=== PATIENT | male | born 1940 | race Caucasian/White ===

== ENCOUNTER 2017-07-25 10:59 | Outpatient (CLI) | payer MEDICARE ==
--- NOTE | 2017-07-25 13:07 | RAD ---
PA AND LATERAL CHEST: Indication: History of dyspnea. FINDINGS: There are stable post-surgical changes involving the chest. Heart size remains mildly prominent. Lung s are clear. No pleural effusion is evident. IMPRESSION: Stable cardiomegaly. POS: [facility]
== END 2017-07-25 11:00 | disposition home or self-care (01) ==
LOC: RAD 10:59
PROVIDERS: ATTEND Internal Medicine Critical Care Medicine
DX: R06.00 Dyspnea, unspecified (principal); I51.7 Cardiomegaly
CPT/HCPCS: 71046

== ENCOUNTER 2018-04-16 11:52 | Inpatient (IN) | payer MEDICARE ==
[2018-04-16 13:01] LABS: Hemoglobin 14.4 g/dL (14.0-18.0); Mean Corpuscular HGB CONC 33.3 g/dL (32.0-36.0); Mean Corpuscular Hemoglobin 31.6 pg (27.0-31.0); RBC Distribution Width 12.3 % (11.5-14.5); Red Blood Cell (RBC) Count 4.55 mill/uL (4.70-6.10); White Blood Cell (WBC) Count 6.1 thou/uL (4.8-10.8)
--- NOTE | 2018-04-16 13:07 | RAD ---
CHEST TWO VIEWS: History: Cough. Comparison: 10-01-15, 07-25-17 FINDINGS: There are sternotomy wires. There is atherosclerosis of the aorta. Heart is enlarged. The pulmonary v essels and hilum are normal. Costophrenic angles are clear. Hyperinflation with chronic changes. Supe rimposed interstitial infiltrates cannot be excluded. No consolidation or mass. No pneumothorax or os seous abnormalities. IMPRESSION: 1. Chronic changes. Superimposed infiltrates in the lung parenchyma cannot be excluded. 2. Atherosclerosis. POS: C
[2018-04-16 13:15] LABS: Anion Gap 14 mmol/L (10-20); BUN (Urea Nitrogen) 10 mg/dL (8.4-25.7); Calc. Creatinine Clearance 0 mL/min (70-130); Calcium 8.3 mg/dL (7.8-10.44); Carbon Dioxide 21 mmol/L (23-31); Chloride 102 mmol/L (98-107); Estimated GFR-MDRD Greater than 90; Glucose 122 mg/dL (83-110); Sodium 133 mmol/L (136-145)
[2018-04-16 13:23] LABS: Mean Platelet Volume 9.2 fL (7.4-10.4); Platelet Count 95 thou/uL (130-400)
[2018-04-16 13:24] LABS: Band 8 % (5-11); Eosinophils 1 % (0-10); Lymphocytes 6 % (21-51); MDiff Complete? YES; Monocytes 5 % (0-10); Neutrophil 80 % (42-75); PLT Morphology Comment Appears Decreased
[2018-04-16 13:43] LABS: ALT (SGPT) 16 U/L (8-55); AST (SGOT) 32 U/L (5-34); Albumin 3.8 g/dL (3.4-4.8); Alkaline Phosphatase 77 U/L (40-150); Bilirubin, Total 1.2 mg/dL (0.2-1.2); CK (CPK) 181 U/L (30-200); Globulin 2.1 g/dL (2.4-3.5); Protein, Total 5.9 g/dL (5.8-8.1)
[2018-04-16] MEDS ORDERED: Azithromycin 500 MG VIAL ONE ×2 (14:02→14:24)
[2018-04-16] MEDS ORDERED: cefTRIAXone\\ROCEPHIN 2 GM VIAL ONE ×2 (14:02→14:24)
[2018-04-16] MEDS ORDERED: Iopamidol 370 76% 100 ML VIAL ONE (16:44)
[2018-04-16] MEDS ORDERED: Ondansetron PF 4 MG/2 ML Vial IVP PRN (17:32)
[2018-04-16] MEDS ORDERED: Ondansetron ODT 4 MG TAB SL PRN (17:32)
[2018-04-16 18:11] VITALS: BMI 29.3
[2018-04-16] MEDS ORDERED: Furosemide 40 MG/4 ML VIAL SLOW IVP SCH (19:30)
--- NOTE | 2018-04-16 19:46 | CT ---
CT OF THE CHEST WITH CONTRAST: 04/16/18 COMPARISON: None. HISTORY: Pneumonia. TECHNIQUE: Multiple contiguous axial images were obtained in a CT of the chest with contrast. Coronal reformats were performed. FINDINGS: The heart is moderately enlarged. The patient is status post sternotomy. Calcifications are seen in t he coronary arteries. No hilar or mediastinal lymphadenopathy are appreciated. There are multifocal infiltrates in the lungs. This is seen in the bilateral upper lobes and to a les ser extent in the left lower lobe. No pleural effusion or pneumothorax are seen. Degenerative changes are seen in the spine. Hyperdensity in the gallbladder may represent gallstones. There is a thickene d gallbladder wall. The other visualized subdiaphragmatic structures are unremarkable. The chest wall soft tissues are unremarkable. IMPRESSION: 1. Multifocal infiltrates. 2. Cholelithiasis with possible acute cholecystitis. POS: [facility]
[2018-04-16] MEDS: Acetaminophen 325 MG TAB PO PRN (20:12)
[2018-04-16] MEDS ORDERED: PYRIDOXINE HCL PO SCH (21:00)
[2018-04-16] MEDS ORDERED: MELATONIN PO SCH (21:00)
[2018-04-16] MEDS: Potassium Chloride 20 MEQ TAB PO SCH (21:24)
[2018-04-16] MEDS: Melatonin 3 MG TAB PO SCH (21:25)
[2018-04-16] MEDS: Gabapentin 300 MG CAP PO SCH (21:25)
[2018-04-16] MEDS: Famotidine 20 MG TAB PO SCH (21:27)
[2018-04-16] MEDS: Carvedilol 25 MG TAB PO SCH (21:27)
[2018-04-16] MEDS: Guaifenesin DM 100-10/5 ML UDCUP PO PRN (21:40)
[2018-04-16] MEDS: Cepastat Lozenges 1 LOZ PO PRN (23:42)
--- NOTE | 2018-04-17 02:57 | HP ---
PRIMARY CARE PHYSICIAN: CHIEF COMPLAINT: Cough and shortness of breath. HISTORY OF PRESENT ILLNESS: Mr. Oconnor is a pleasant 77-year-old male, who presents with a past medical history of coronary artery disease; atrial fibrillation, status post ablation; hyperlipidemia; and hypertension, who had presented to [facility] with complaint of cough and productive yellow sputum along with congestions for 1 week. He also reports some slight shortness of breath. He had denied any chest pain. He had stated that he has noticed fever on and off over the last several days of up to 100.2. He states he was seen by his primary care physician, who had prescribed him promethazine cough syrup. The patient states over the last couple days, he had felt foggy and appeared confused per . He had taken his last dose of the promethazine cough syrup late last night. He states he had 1 episode of vomiting after he had taken that last dose of medication. He denies any further nausea or vomiting since. He states he also has noticed some generalized weakness. He had denied any headache, dizziness, blurred vision. He, however, does report fever, chills, generalized weakness, cough, mild shortness of breath. Nausea and vomiting last night, however, none since. He had denied any abdominal pain, constipation, or diarrhea. In the emergency department, he underwent a chest x-ray, which revealed chronic changes, superimposed infiltrates in the lungs, cannot be excluded. He was started on IV antibiotics including azithromycin and ceftriaxone. The patient's allergy list did indicate erythromycin; however, the patient had tolerated azithromycin well via IV. He has no symptoms of allergy-like symptoms. He was transferred to the floor for further monitoring and management. REVIEW OF SYSTEMS: Positive for cough, shortness of breath, generalized weakness, fever, and chills; however, all other review of systems reviewed and is negative unless noted in the HPI. PAST MEDICAL HISTORY: CAD, status post 3 stents placed; atrial fibrillation, status post ablation; hyperlipidemia; hypertension. PAST SURGICAL HISTORY: Coronary artery bypass graft x2 vessels, bilateral knee surgery, and right shoulder surgery. PSYCHIATRIC HISTORY: Denies any psychiatric history at this time. SOCIAL HISTORY: The patient reports drinking socially about 1-2 drinks a month. He denies tobacco use or any illicit drug use. KNOWN ALLERGIES: 1. Amiodarone. 2. Chloramphenicol. 3. Ciprofloxacin. 4. Doxycycline. 5. Erythromycin, however, tolerated azithromycin. 6. Lovastatin. 7. Phenergan. 8. Sulfa drugs. CURRENT HOME MEDICATIONS: 1. Furosemide 20 mg p.o. daily. 2. Nystatin 100,000 units p.o. b.i.d. p.r.n. 3. Apixaban 5 mg p.o. b.i.d. 4. Gabapentin 300 mg p.o. b.i.d. 5. Fexofenadine 180 mg p.o. daily p.r.n. 6. Pitavastatin 2 mg p.o. daily. 7. Potassium chloride 20 mEq p.o. t.i.d. 8. Selenium 50 mcg p.o. daily. 9. Hydrocortisone 2.5% ointment one application topical b.i.d. p.r.n. 10. Carvedilol 12.5 mg p.o. b.i.d. 11. Dutasteride 0.5 mg p.o. daily. 12. Valsartan 160 mg p.o. daily. 13. Hydroxyzine 25 mg p.o. q.a.m. 14. Fish oil 4 g p.o. at bedtime. 15. CoQ10 of 100 mg p.o. p.r.n. 16. Lysine 500 mg p.o. daily. 17. Melatonin/Pyridoxine 3 mg/10 mg 1 tab p.o. at bedtime. LABORATORY DATA: WBC 6.1, RBC 4.55, hemoglobin 14.4, platelets 95, neutrophil percent 80. Sodium 133, potassium 4.0, BUN 10, creatinine 0.79. Estimated GFR greater than 90. Glucose 122. Lactic acid 1.9. AST 32, ALT 16, alkaline phosphatase 77. Creatine kinase 181. Troponin 0.026. BNP 1610.6. DIAGNOSTIC IMAGING: Chest x-ray showed chronic changes, superimposed infiltrates in the lung. ASSESSMENT AND PLAN: 1. Pneumonia: We will check sputum culture results and blood culture results. Continue on IV antibiotics including ceftriaxone and azithromycin. Erythromycin is noted to be an allergy; however, he had tolerated IV azithromycin well. We will monitor patient closely. The patient had a CT in the past that showed pulmonary fibrosis. We will check CT with and without contrast for further evaluation. 2. Shortness of breath, likely secondary to above; however, the patient's BNP elevated. He had denied any cardiac workup recently; therefore, we will check echocardiogram for cardiac status. The patient is on furosemide at home. We will give a single dose of IV 40 mg of Lasix and then continue on his home furosemide dose tomorrow. 3. Hypertension: Continue on patient's current home medications. 4. History of atrial fibrillation: The patient remains in sinus rhythm on the monitor. We will continue on the patient's home regimen and monitor closely. 5. Hyperlipidemia: Continue on patient's home statin therapy. 6. Deep venous thrombosis prophylaxis: Continue on patient's home Eliquis. 7. Gastrointestinal prophylaxis with Pepcid twice daily and Zofran as needed for nausea. 8. Code status: Full code. DISPOSITION: Pending clinical findings and patient's progress. Job ID: [id number]
[2018-04-17] MEDS: Guaifenesin DM 100-10/5 ML UDCUP PO PRN ×3 (04:13→21:43)
[2018-04-17 05:51] LABS: Band 9 % (5-11); Hemoglobin 12.5 g/dL (14.0-18.0); Lymphocytes 17 % (21-51); MDiff Complete? YES; Mean Corpuscular HGB CONC 29.8 g/dL (32.0-36.0); Mean Corpuscular Hemoglobin 28.1 pg (27.0-31.0); Mean Corpuscular Volume 94.3 fL (78.0-98.0); Mean Platelet Volume 9.6 fL (7.4-10.4); Monocytes 15 % (0-10); Neutrophil 59 % (42-75); Ovalocytes SLIGHT = 2-5 cells (100X) (0-1/hpf); PLT Morphology Comment Appears Decreased; Platelet Count 100 thou/uL (130-400); RBC Distribution Width 12.2 % (11.5-14.5); Red Blood Cell (RBC) Count 4.45 mill/uL (4.70-6.10); White Blood Cell (WBC) Count 5.9 thou/uL (4.8-10.8)
[2018-04-17 06:06] LABS: Anion Gap 14 mmol/L (10-20); BUN (Urea Nitrogen) 12 mg/dL (8.4-25.7); Calc. Creatinine Clearance 86 mL/min (70-130); Calcium 8.3 mg/dL (7.8-10.44); Carbon Dioxide 25 mmol/L (23-31); Chloride 100 mmol/L (98-107); Estimated GFR-MDRD 89; Glucose 94 mg/dL (83-110); Potassium 4.3 mmol/L (3.5-5.1); Sodium 135 mmol/L (136-145)
[2018-04-17] MEDS: Carvedilol 25 MG TAB PO SCH ×2 (08:20→21:42)
[2018-04-17] MEDS: Furosemide 20 MG TAB PO SCH (08:21)
[2018-04-17] MEDS: Dutasteride 0.5 MG CAP PO SCH (08:21)
[2018-04-17] MEDS: Gabapentin 300 MG CAP PO SCH ×2 (08:21→21:43)
[2018-04-17] MEDS: Potassium Chloride 20 MEQ TAB PO SCH ×3 (08:22→21:43)
[2018-04-17] MEDS: Cepastat Lozenges 1 LOZ PO PRN (08:23)
[2018-04-17] MEDS: hydrOXYzine 25 MG TAB PO SCH (08:29)
[2018-04-17] MEDS: Famotidine 20 MG TAB PO SCH ×2 (08:30→21:43)
[2018-04-17] MEDS ORDERED: PITAVASTATIN CALCIUM 2 MG PO SCH (09:00)
[2018-04-17] MEDS ORDERED: Valsartan 80 MG TAB PO SCH (09:00)
[2018-04-17] MEDS ORDERED: SELENIUM 50 MCG PO SCH (09:00)
[2018-04-17] MEDS: Azithromycin 500 MG in Sodium Chloride 0.9% 250 ML 250 ML IVPB SCH (13:35)
[2018-04-17] MEDS: cefTRIAXone\\ROCEPHIN 1 GM in Sodium Chloride 0.9% 100 ML IVPB SCH (14:46)
[2018-04-17] MEDS: Ondansetron ODT 4 MG TAB SL PRN ×2 (14:47→21:50)
--- NOTE | 2018-04-17 16:17 | CON ---
DATE OF CONSULTATION: 04/17/2018 REASON FOR CONSULTATION: Cardiomyopathy. HISTORY OF PRESENT ILLNESS: Mr. Oconnor is a pleasant 77-year-old white gentleman, who comes to the hospital for cough and fever. He was admitted and diagnosed with multifocal pneumonia, started on IV antibiotics. During his initial evaluation, a BNP was measured and it was very high, so an echocardiogram was ordered. He also was seen to be a little swollen around the legs. It was thought that his shortness of breath was related to his pneumonia. He had an echo earlier this morning and was found to have a new onset of cardiomyopathy, his EF is 30% to 35%, so Cardiology has been consulted for this. Mr. Oconnor tells me that he expected his heart to be a little bit weak on that echo as he had noticed that he had been slowing down in the last 2 to 3 months. He was unable to do the exercise that he is used to do. He has a very nice schedule. As far as his exercise is concerned, he does 45 reps of 13 different exercises and he has been having to cut back significantly because he has been much weaker and tired lately. Last time he had an evaluation of his EF here in the hospital was in 2016, and he had normal LV function. He follows with Dr. Fitch, and he had an echo about a year ago and he was told everything looked fine. He denies any chest pain, tightness, or pressure. PAST MEDICAL HISTORY: 1. Hypertension. 2. Hyperlipidemia. 3. BPH. 4. CAD, status post bypass surgery in [facility] in about 20 years ago. 5. Bronchitis in the past. 6. Paroxysmal atrial fibrillation. 7. GI bleeding, on full anticoagulation. PAST SURGICAL HISTORY: 1. Coronary artery bypass grafting x2. 2. Bilateral knee surgery. 3. Right shoulder surgery. SOCIAL HISTORY: Social alcohol use, about one or two drinks a month. No tobacco or drug use. OUTPATIENT MEDICATIONS: Include: 1. Lasix 20 mg a day. 2. Nystatin p.r.n. 3. Eliquis 5 mg b.i.d. 4. Gabapentin 300 mg p.o. b.i.d. 5. Fexofenadine 180 mg a day. 6. Pitavastatin 2 mg a day. 7. Potassium chloride 20 mEq t.i.d. 8. Selenium. 9. Hydrocortisone p.r.n. ointment. 10. Carvedilol 12.5 mg b.i.d. 11. Dutasteride 0.5 mg a day. 12. Valsartan 160 mg a day. 13. Hydroxyzine 25 mg q.a.m. 14. Fish oil 4 g p.o. at bedtime. 15. CoQ10. 16. Lysine. 17. Melatonin with pyridoxine. ALLERGIES: 1. AMIODARONE. 2. CHLORAMPHENICOL. 3. CIPROFLOXACIN. 4. DOXYCYCLINE. 5. ERYTHROMYCIN, BUT HAS TOLERATED THE AZITHROMYCIN. 6. LOVASTATIN. 7. PHENERGAN. 8. SULFA DRUGS. REVIEW OF SYSTEMS: A 12-point review of systems was done and was found to be negative unless stated in the history of present illness. PHYSICAL EXAMINATION: VITAL SIGNS: Temperature 99.7, pulse 64, respiratory rate 16, saturating 92% on room air, and blood pressure 154/72. GENERAL: Awake, alert, and oriented x3, in no distress. HEENT: Normocephalic, atraumatic. NECK: Supple. LUNGS: Coarse breath sounds bilaterally with expiratory wheezes. CARDIOVASCULAR: S1 and S2. No S3 or S4. There is a grade 2/6 systolic murmur in the right upper sternal border. ABDOMEN: Soft. Positive bowel sounds. EXTREMITIES: Trace edema. SKIN: Warm and dry. LABORATORY DATA: Laboratory work was reviewed. CBC; white count 6.1, hemoglobin of 14.4, hematocrit 43, platelet count of 95. Chemistries with a sodium of 133, up to 135. Potassium and chloride are normal. BUN and creatinine are normal. GFR is greater than 90. Lactic acid was normal at 1.9. Troponin 0.026, normal. BNP was 1610. Albumin of 3.8. Influenza A and B are both negative. Blood cultures were negative x2. Respiratory culture is a few gram-positive cocci and a few gram-negative rods and moderate gram-positive rods. Normal respiratory tomas. EKG was reviewed, right bundle-branch block, bradycardia but sinus. ASSESSMENT: 1. New-onset cardiomyopathy, ejection fraction of 30% to 35% on echo with grade 3 diastolic dysfunction. 2. Multilobar pneumonia. 3. Coronary artery disease, status post coronary artery bypass grafting x2, 20 years ago. 4. Paroxysmal atrial fibrillation. 5. History of gastrointestinal bleeding in the past. PLAN: 1. Reduced EF on echo may be ischemic and may be related to multilobar pneumonia. 2. He will need a heart catheterization in the near future. However, at this point, he is having to get over his pneumonia. He is coughing quite a bit, and that would not be ideal for heart catheterization from the groin as his bleeding risk is a lot higher with coughing. I would wait for this to get better before doing further risk stratification. 3. We would up titrate his medications currently. We will switch to Entresto before discharge. 4. We had a long conversation about LifeVest on discharge and he agrees. We will put an order for LifeVest as well. 5. He will need to be on telemetry given his LV dysfunction. Thank you for letting me to participate in the care of your patient. Dr. Cannon will follow up in the morning. Job ID: [id number] [facility]
[2018-04-17] MEDS: Sacubitril 24.5 MG/Valsartan 25.5 MG TABLET PO SCH (21:42)
[2018-04-17] MEDS: Melatonin 3 MG TAB PO SCH (21:42)
--- NOTE | 2018-04-17 22:02 | PDOC.PN ---
- Subjective Encounter Start Date: 04/17/18 Encounter Start Time: 12:00 Patient seen with at bedside earlier today, he reports feeling better today. He has noticed some loose stools and mild nausea that improved after zofran. He deneis fever or chills. Blood cultures negative. He reports improved shortness of breath, but persistent cough. Dr Armstrong saw patient for reduced EF and plans for life vest with heart cath in near future once pneumonia resolved. - Objective Resuscitation Status - Order Detail: 04/16/18 17:49 Resuscitation Status Routine Co-Sign Provider: Resuscitation Status: FULL: Full Resuscitation MAR Reviewed: Yes Vital Signs & Weight: Vital Signs (12 hours) Temp Pulse Resp BP BP Pulse Ox 04/17/18 20:00 99.2 F 73 18 162/80 H 92 L 04/17/18 19:07 60 12 04/17/18 16:28 98.9 F 67 18 150/78 H 93 L 04/17/18 16:21 97.8 F 65 18 142/77 H 93 L 04/17/18 11:20 99.7 F H 64 16 154/72 H 92 L 04/17/18 10:13 66 20 160/74 H Weight Weight 181 lb 14.4 oz I&O: 04/16/18 04/17/18 04/18/18 06:59 06:59 06:59 Intake Total 754 1410 Output Total 925 Balance 754 485 Result Diagrams: 04/17/18 04:09 04/17/18 04:09 Radiology Reviewed by me: Yes Phys Exam - Physical Examination Constitutional: NAD HEENT: PERRLA, moist MMs, oral pharynx no lesions Neck: no nodes, no JVD, supple Course breath sounds with expiratory wheezes. Cardiovascular: RRR, no rub 2/6 systolic murmur Gastrointestinal: soft, non-tender, positive bowel sounds Musculoskeletal: pulses present Trace edema noted Neurological: non-focal, normal sensation, moves all 4 limbs Lymphatic: no nodes Psychiatric: normal affect, A&O x 3 Skin: no rash, normal turgor, cap refill <2 seconds Dx/Plan (1) Pneumonia Code(s): J18.9 - PNEUMONIA, UNSPECIFIED ORGANISM Status: Acute (2) Systolic and diastolic CHF, acute Code(s): I50.41 - ACUTE COMBINED SYSTOLIC AND DIASTOLIC (CONGESTIVE) HRT FAIL Status: Acute (3) CAD (coronary artery disease) Code(s): I25.10 - ATHSCL HEART DISEASE OF [place] CORONARY ARTERY W/O ANG PCTRS Status: Chronic Qualifiers: Coronary Disease-Associated Artery/Lesion type: [place] artery [place] vs. transplanted heart: [place] heart Associated angina: without angina Qualified Code(s): I25.10 - Atherosclerotic heart disease of [place] coronary artery without angina pectoris (4) HTN (hypertension) Code(s): I10 - ESSENTIAL (PRIMARY) HYPERTENSION Status: Chronic - Plan cont current plan of care, plan discussed w/ family, continue antibiotics, respiratory therapy * Transfer to [facility] * Continue supportive therapy including duonebs * Continue antibiotic therapy, await sputum culture * Blood cultures negative * Check stool cultures for new onset diarrhea * Cardiology services following, appreciate recs * Dr Armstrong recommending lifevest with heart cath in near future * monitor vital and labs
[2018-04-18] MEDS: Acetaminophen 325 MG TAB PO PRN (05:23)
[2018-04-18] MEDS ORDERED: Loratadine 10 MG TAB PO PRN (07:26)
[2018-04-18] MEDS ORDERED: Sodium Chloride 0.65% Nasal 44 ML BOT EA NARE PRN (07:26)
[2018-04-18] MEDS ORDERED: Loperamide HCl 2 MG CAP PO PRN (07:26)
[2018-04-18] MEDS ORDERED: Acetaminophen 500 MG TAB PO PRN (07:26)
[2018-04-18] MEDS ORDERED: Bisacodyl 5 MG TAB PO PRN (07:26)
[2018-04-18] MEDS ORDERED: HYDROcodone/Acetaminophen 5/325 mg Tablet PO PRN (07:26)
[2018-04-18] MEDS ORDERED: Senokot S 8.6-50 MG TAB PO PRN (07:26)
[2018-04-18] MEDS ORDERED: Eucerin (Mineral Oil/Petrolatum,White) 30 gm Jar TOP PRN (07:26)
[2018-04-18] MEDS ORDERED: Zolpidem Tartrate 5 MG TAB PO PRN (07:26)
[2018-04-18] MEDS ORDERED: Artificial Tears 18 DROP/0.9 ML EA EYE PRN (07:26)
[2018-04-18] MEDS ORDERED: hydrALAZINE 20 MG/ML VIAL SLOW IVP PRN (07:26)
[2018-04-18] MEDS ORDERED: Ondansetron PF 4 MG/2 ML Vial IVP PRN (07:26)
[2018-04-18] MEDS: Carvedilol 25 MG TAB PO SCH ×2 (08:31→21:16)
[2018-04-18] MEDS: Apixaban 5 MG TAB PO SCH ×2 (08:31→21:15)
[2018-04-18] MEDS: Saccharomyces boulardii 250 MG CAP PO SCH (08:31)
[2018-04-18] MEDS: Gabapentin 300 MG CAP PO SCH ×2 (08:32→21:15)
[2018-04-18] MEDS: Famotidine 20 MG TAB PO SCH ×2 (08:32→21:15)
[2018-04-18] MEDS: Sacubitril 24.5 MG/Valsartan 25.5 MG TABLET PO SCH ×2 (08:32→21:16)
[2018-04-18] MEDS: hydrOXYzine 25 MG TAB PO SCH (08:32)
[2018-04-18] MEDS: Furosemide 20 MG TAB PO SCH (08:32)
[2018-04-18] MEDS: Dutasteride 0.5 MG CAP PO SCH (08:32)
[2018-04-18] MEDS: Potassium Chloride 20 MEQ TAB PO SCH ×3 (08:32→21:16)
[2018-04-18] MEDS: Lysine 500 MG TAB PO SCH (08:37)
--- NOTE | 2018-04-18 09:47 | ULT ---
RIGHT UPPER QUADRANT ULTRASOUND: History: Abnormal CT chest 04-16-18, possible cholecystitis. FINDINGS: The liver demonstrates homogeneous echotexture without focal mass or intrahepatic ductal dilatation. Multiple shadowing gallstones are seen with gallbladder wall thickening. The pancreas is not well vis ualized due to overlying bowel gas. The common duct measures 5 mm in thickness. The right kidney is u nremarkable. There is a trace amount of fluid adjacent to the gallbladder/liver in the left lateral d ecubitus position. IMPRESSION: Cholelithiasis with gallbladder wall thickening and trace amount of free fluid. The possibility of ac [place] cholecystitis cannot be excluded. Further evaluation with HIDA scan is recommended. POS: C
--- NOTE | 2018-04-18 10:16 | PDOC.PN ---
- Subjective Encounter Start Date: 04/18/18 Encounter Start Time: 09:40 -: old records requested/rev pt has cough, he has no abdominal pain, has fever, no dyspnea Patient seen and examined. No new complaints. No overnight events - Objective Resuscitation Status - Order Detail: 04/16/18 17:49 Resuscitation Status Routine Co-Sign Provider: Resuscitation Status: FULL: Full Resuscitation MAR Reviewed: Yes Vital Signs & Weight: Vital Signs (12 hours) Temp Pulse Resp BP Pulse Ox 04/18/18 10:11 65 18 92 L 04/18/18 08:30 90 L 04/18/18 07:50 99.0 F 61 18 133/64 90 L 04/18/18 06:50 68 16 94 L 04/18/18 04:00 101.6 F H 71 18 125/60 90 L 04/18/18 02:34 60 12 04/18/18 00:00 100.6 F H 68 20 133/79 91 L Weight Weight 181 lb 14.4 oz I&O: 04/17/18 04/18/18 04/19/18 06:59 06:59 06:59 Intake Total 754 1410 300 Output Total 925 Balance 754 485 300 Result Diagrams: 04/17/18 04:09 04/17/18 04:09 Radiology Reviewed by me: Yes (US cholelethiasis) EKG Reviewed by me: Yes (nsr) Phys Exam - Physical Examination Constitutional: NAD HEENT: PERRLA, moist MMs, sclera anicteric Neck: no JVD, supple Respiratory: no wheezing, no rhonchi scattered rales+ Cardiovascular: RRR, no significant murmur, no rub Gastrointestinal: soft, non-tender, no distention, positive bowel sounds Musculoskeletal: no edema, pulses present Neurological: non-focal, normal sensation, moves all 4 limbs Lymphatic: no nodes Psychiatric: normal affect, A&O x 3 Skin: no rash, normal turgor Dx/Plan (1) Multifocal pneumonia Code(s): J18.9 - PNEUMONIA, UNSPECIFIED ORGANISM Status: Acute Comment: suspecting streptococal (2) Sepsis due to pneumonia Code(s): J18.9 - PNEUMONIA, UNSPECIFIED ORGANISM; A41.9 - SEPSIS, UNSPECIFIED ORGANISM Status: Acute (3) Thrombocytopenia Code(s): D69.6 - THROMBOCYTOPENIA, UNSPECIFIED Status: Acute Comment: due to sepsis (4) BPH (benign prostatic hyperplasia) Code(s): N40.0 - BENIGN PROSTATIC HYPERPLASIA WITHOUT LOWER URINRY TRACT SYMP Status: Chronic (5) CAD (coronary artery disease) Code(s): I25.10 - ATHSCL HEART DISEASE OF [place] CORONARY ARTERY W/O ANG PCTRS Status: Chronic Qualifiers: Coronary Disease-Associated Artery/Lesion type: [place] artery [place] vs. transplanted heart: [place] heart Associated angina: without angina Qualified Code(s): I25.10 - Atherosclerotic heart disease of [place] coronary artery without angina pectoris (6) Cholelithiases Code(s): K80.20 - CALCULUS OF GALLBLADDER W/O CHOLECYSTITIS W/O OBSTRUCTION Status: Chronic (7) Chronic anticoagulation Code(s): Z79.01 - LOADER HELPER (CURRENT) USE OF ANTICOAGULANTS Status: Chronic (8) Chronic combined systolic (congestive) and diastolic (congestive) heart failure Code(s): I50.42 - CHRONIC COMBINED SYSTOLIC AND DIASTOLIC HRT FAIL Status: Chronic (9) Dyslipidemia Code(s): E78.5 - HYPERLIPIDEMIA, UNSPECIFIED Status: Chronic (10) HTN (hypertension) Code(s): I10 - ESSENTIAL (PRIMARY) HYPERTENSION Status: Chronic (11) Moderate aortic regurgitation Code(s): I35.1 - NONRHEUMATIC AORTIC (VALVE) INSUFFICIENCY Status: Chronic (12) Paroxysmal a-fib Code(s): I48.0 - PAROXYSMAL ATRIAL FIBRILLATION Status: Chronic - Plan cont current plan of care, continue antibiotics, respiratory therapy * medication reviewed as below * symptomatic treatment * continue rocephin and azithromycin * follow culture * will get HIDA scan to rule out acute cholecystitis * repeat labs tomorrow * overall stable and improving. Review of Systems - Review of Systems Constitutional: fever. negative: chills, sweats, weakness, malaise, other ENT: negative: Ear Pain, Ear Discharge, Nose Pain, Nose Discharge, Nose Congestion, Mouth Pain, Mouth Swelling, Throat Pain, Throat Swelling, Other Respiratory: Cough. negative: Dry, Shortness of Breath, Hemoptysis, SOB with Excertion, Pleuritic Pain, Sputum, Wheezing Cardiovascular: negative: chest pain, palpitations, orthopnea, paroxysmal nocturnal dyspnea, edema, light headedness, other Gastrointestinal: negative: Nausea, Vomiting, Abdominal Pain, Diarrhea, Constipation, Melena, Hematochezia, Other Genitourinary: negative: Dysuria, Frequency, Incontinence, Hematuria, Retention , Other Musculoskeletal: negative: Neck Pain, Shoulder Pain, Arm Pain, Back Pain, Hand Pain, Leg Pain, Foot Pain, Other Skin: negative: Rash, Lesions, Zeus, Bruising, Other - Medications/Allergies Allergies/Adverse Reactions: Allergies Allergy/AdvReac Type Severity Reaction Status Date / Time Hppegth-Lmx-Fge Reductase Allergy Intermediate Muscle Verified 04/16/18 18:10 Inhibitor spasms amiodarone Allergy Verified 07/14/14 15:48 chloramphenicol Allergy Verified 07/14/14 15:48 [From Chloromycetin] ciprofloxacin HCl Allergy Verified 07/14/14 15:48 [From Cipro] doxycycline Allergy Verified 07/14/14 15:48 erythromycin base Allergy Verified 07/14/14 15:48 Sulfa (Sulfonamide Allergy Verified 07/14/14 15:48 Antibiotics) Medications: Current Medications Acetaminophen (Tylenol) 650 mg PO Q4H PRN PRN Reason: Headache/Fever/Mild Pain (1-3) Last Admin: 04/18/18 05:23 Dose: 650 mg Acetaminophen (Tylenol) 500 mg PO Q6H PRN PRN Reason: Mild Pain (1-3) Hydrocodone Bitart/Acetaminophen ([place] 5/325) 1 tab PO Q4H PRN PRN Reason: Moderate Pain (4-6) Albuterol/Ipratropium (Duoneb) 3 ml NEB [id number] [facility] Last Admin: 04/18/18 10:11 Dose: 3 ml Apixaban (Eliquis) 5 mg PO BID [facility] Last Admin: 04/18/18 08:31 Dose: 5 mg Artificial Tears (Tears Naturale) 2 drop EA EYE PRN PRN PRN Reason: Dry Eyes Bisacodyl (Dulcolax) 10 mg PO DAILYPRN PRN PRN Reason: Constipation Carvedilol (Coreg) 12.5 mg PO BID [facility] Last Admin: 04/18/18 08:31 Dose: 12.5 mg Dutasteride (Avodart) 0.5 mg PO DAILY [facility] Last Admin: 04/18/18 08:32 Dose: 0.5 mg Famotidine (Pepcid) 20 mg PO BID [facility] Last Admin: 04/18/18 08:32 Dose: 20 mg Fish Oil (Fish Oil) 4,000 mg PO HS [facility] Furosemide (Lasix) 20 mg PO DAILY [facility] Last Admin: 04/18/18 08:32 Dose: 20 mg Gabapentin (Neurontin) 300 mg PO BID [facility] Last Admin: 04/18/18 08:32 Dose: 300 mg Guaifenesin (Robitussin Sf) 200 mg PO Q4H PRN PRN Reason: Cough Guaifenesin/Dextromethorphan (Robitussin Dm) 10 ml PO Q6H PRN PRN Reason: Cough Last Admin: 04/17/18 21:43 Dose: 10 ml Hydralazine HCl (Apresoline) 10 mg SLOW IVP Q4H PRN PRN Reason: SBP > 180 and HR < 70 Hydroxyzine HCl (Atarax) 25 mg PO QAM [facility] Last Admin: 04/18/18 08:32 Dose: 25 mg Azithromycin 500 mg/ Sodium (Chloride) 250 mls @ 250 mls/hr IVPB 1400 [facility] Last Admin: 04/17/18 13:35 Dose: 250 mls Ceftriaxone Sodium 1 gm/ (Sodium Chloride) 100 mls @ 200 mls/hr IVPB 1500 [facility] Last Admin: 04/17/18 14:46 Dose: 100 mls Loperamide HCl (Imodium) 2 mg PO PRN PRN PRN Reason: Diarrhea/Loose Stools Loratadine (Claritin) 10 mg PO DAILYPRN PRN PRN Reason: Sinus Symptoms Lysine (L-Lysine) 500 mg PO DAILY [facility] Last Admin: 04/18/18 08:37 Dose: 500 mg Melatonin (Melatonin) 3 mg PO [facility] Last Admin: 04/17/18 21:42 Dose: 3 mg Mineral Oil/White Petrolatum (Eucerin Cream) 0 gm TOP BIDPRN PRN PRN Reason: Dry Skin Ondansetron HCl (Zofran Odt) 4 mg SL Q6H PRN PRN Reason: Nausea/Vomiting Last Admin: 04/17/18 21:50 Dose: 4 mg Ondansetron HCl (Zofran) 4 mg IVP Q6H PRN PRN Reason: Nausea/Vomiting Potassium Chloride (K-Dur) 20 meq PO TID [facility] Last Admin: 04/18/18 08:32 Dose: 20 meq Saccharomyces Boulardii (Florastor) 250 mg PO DAILY [facility] Last Admin: 04/18/18 08:31 Dose: 250 mg Sacubitril/Valsartan (Entresto 24.5 Mg-25.5 Mg Tablet) 1 tab PO BID [facility] Last Admin: 04/18/18 08:32 Dose: 1 tab Senna/Docusate Sodium (Senokot S) 2 tab PO BID PRN PRN Reason: Constipation Sodium Chloride (Flush - Normal Saline) 10 ml IVF PRN PRN PRN Reason: Saline Flush Last Admin: 04/17/18 21:43 Dose: 10 ml Sodium Chloride ([place] Nasal [place] 0.65%) 0 ml EA NARE QIDPRN PRN PRN Reason: Nasal Congestion Throat Lozenges (Cepastat Lozenges) 1 lois PO PRN PRN PRN Reason: SORE THROAT Last Admin: 04/17/18 08:23 Dose: 1 lois Zolpidem Tartrate (Ambien) 5 mg PO HSPRN PRN PRN Reason: Insomnia
[2018-04-18] MEDS ORDERED: Morphine 2 MG/ML SYRINGE SLOW IVP SCH (16:15)
[2018-04-18] MEDS: Azithromycin 500 MG in Sodium Chloride 0.9% 250 ML 250 ML IVPB SCH (17:26)
--- NOTE | 2018-04-18 18:02 | PDOC.CTH ---
Cardiology Progress Note - Subjective No current complaints. SEn ambulating today. On BB, entresto, Abx. Low grade fever today - Objective Vital Signs Temp Pulse Resp BP Pulse Ox 04/18/18 15:37 98.7 F 60 16 148/68 H 91 L 04/18/18 11:22 98.9 F 53 L 18 118/59 L 90 L 04/18/18 10:11 65 18 92 L 04/18/18 08:30 90 L 04/18/18 07:50 99.0 F 61 18 133/64 90 L 04/18/18 06:50 68 16 94 L Weight 181 lb 14.4 oz 04/17/18 04/18/18 04/19/18 06:59 06:59 06:59 Intake Total 754 1410 300 Output Total 925 Balance 754 485 300 - Physical Examination General/Neuro: alert & oriented x3, NAD Neck: carotid US brisk, no JVD present Lungs: CTA, unlabored respirations Heart: PMI normal, RRR Abdomen: NT/ND, soft Extremities: + femoral B - Labs Result Diagrams: 04/17/18 04:09 04/17/18 04:09 Troponin/CKMB Troponin I 0.026 ng/mL (< 0.028) 04/16/18 12:44 - Assessment/Plan 1. Cardiomyopathy of unknown etiology 2. Pneumonia 3. CAD On CHF meds Recommend lifevest Order placed On Abx.
[2018-04-18] MEDS: cefTRIAXone\\ROCEPHIN 1 GM in Sodium Chloride 0.9% 100 ML IVPB SCH (18:37)
--- NOTE | 2018-04-18 19:04 | NM ---
HEPATOBILIARY STUDY: 04/18/18 HISTORY: Gallbladder wall thickening noted on ultrasound exam and CT examination. Evaluate for cholecystitis. RADIOPHARMACEUTICAL: 5.5 millicuries technetium 99m Mebrofenin, IV. MEDICATIONS: 2 mg Morphine, IV five minutes prior to imaging. FINDINGS: There is normal uptake in excretion of radiotracer by the liver. Bowel activity is faintly visualized by 6 minutes with increasing activity in gallbladder imaging up to 60 minutes. The gallbladder is no t visualized after 60 minutes of imaging. As the result, 2 mg of Morphine was administered intravenou sly and imaging was performed. There is activity seen within the gallbladder on the initial images obtained after the Morphine admin istration. IMPRESSION: 1. No evidence of a cystic or common duct obstruction. Gallbladder activity is visualized after Morphine administration. 2. Above findings reviewed with Dr. Amador and Dr. De Guzman who are in agreement with the above f indings and assessment. POS: [facility]
[2018-04-18] MEDS: Melatonin 3 MG TAB PO SCH (21:16)
[2018-04-18] MEDS: Fish Oil 1,000 MG CAP PO SCH (21:16)
[2018-04-19 05:39] LABS: #Lymphocytes 1.4 thou/uL (1.20-3.40); #Monocytes 1.5 thou/uL (0.11-0.59); %Basophils 0.1 % (0.0-1.0); %Eosinophils 0.3 % (0.0-10.0); %Lymphocytes 12.8 % (21.0-51.0); %Monocytes 13.4 % (0.0-10.0); %Neutrophils 73.3 % (42.0-75.0); Hemoglobin 13.6 g/dL (14.0-18.0); Mean Corpuscular HGB CONC 33.4 g/dL (32.0-36.0); Mean Corpuscular Hemoglobin 31.3 pg (27.0-31.0); Mean Corpuscular Volume 93.7 fL (78.0-98.0); Mean Platelet Volume 9.3 fL (7.4-10.4); Platelet Count 113 thou/uL (130-400); RBC Distribution Width 12.1 % (11.5-14.5); Red Blood Cell (RBC) Count 4.36 mill/uL (4.70-6.10)
[2018-04-19 06:45] LABS: ALT (SGPT) 22 U/L (8-55); AST (SGOT) 43 U/L (5-34); Albumin 3.2 g/dL (3.4-4.8); Alkaline Phosphatase 63 U/L (40-150); Anion Gap 12 mmol/L (10-20); BUN (Urea Nitrogen) 17 mg/dL (8.4-25.7); Bilirubin, Total 0.8 mg/dL (0.2-1.2); Calc. Creatinine Clearance 86 mL/min (70-130); Carbon Dioxide 22 mmol/L (23-31); Chloride 100 mmol/L (98-107); Estimated GFR-MDRD 89; Globulin 2.2 g/dL (2.4-3.5); Glucose 93 mg/dL (83-110); Potassium 4.8 mmol/L (3.5-5.1); Protein, Total 5.4 g/dL (5.8-8.1); Sodium 129 mmol/L (136-145)
[2018-04-19] MEDS: Furosemide 20 MG TAB PO SCH (08:45)
[2018-04-19] MEDS: Apixaban 5 MG TAB PO SCH ×2 (08:45→20:40)
[2018-04-19] MEDS: Dutasteride 0.5 MG CAP PO SCH (08:45)
[2018-04-19] MEDS: Carvedilol 25 MG TAB PO SCH ×2 (08:45→20:40)
[2018-04-19] MEDS: Gabapentin 300 MG CAP PO SCH ×2 (08:45→20:40)
[2018-04-19] MEDS: Famotidine 20 MG TAB PO SCH ×2 (08:45→20:41)
[2018-04-19] MEDS: Saccharomyces boulardii 250 MG CAP PO SCH (08:46)
[2018-04-19] MEDS: Lysine 500 MG TAB PO SCH (08:46)
[2018-04-19] MEDS: Sacubitril 24.5 MG/Valsartan 25.5 MG TABLET PO SCH ×2 (08:46→20:40)
[2018-04-19] MEDS: Potassium Chloride 20 MEQ TAB PO SCH ×3 (08:46→20:40)
[2018-04-19] MEDS: hydrOXYzine 25 MG TAB PO SCH (08:46)
[2018-04-19] MEDS ORDERED: Furosemide 20 MG/2 ML VIAL SLOW IVP SCH ×2 (11:00→14:00)
[2018-04-19] MEDS: Diabetic Tussin 200 MG/10 ML UDCUP PO PRN ×3 (11:06→20:41)
[2018-04-19] MEDS: Cepastat Lozenges 1 LOZ PO PRN (11:07)
[2018-04-19] MEDS: Azithromycin 500 MG in Sodium Chloride 0.9% 250 ML 250 ML IVPB SCH (12:22)
--- NOTE | 2018-04-19 12:37 | PDOC.PN ---
- Subjective Encounter Start Date: 04/19/18 Encounter Start Time: 07:40 Pt seen for followup re: pneumonia. Cough+. Sputum+. No fevers. - Objective Resuscitation Status - Order Detail: 04/16/18 17:49 Resuscitation Status Routine Co-Sign Provider: Resuscitation Status: FULL: Full Resuscitation MAR Reviewed: Yes Vital Signs & Weight: Vital Signs (12 hours) Temp Pulse Resp BP Pulse Ox 04/19/18 11:42 98.8 F 68 17 149/71 H 92 L 04/19/18 10:23 85 18 95 04/19/18 07:40 99 04/19/18 07:25 99.4 F 68 16 162/74 H 93 L 04/19/18 06:59 71 16 94 L 04/19/18 04:00 98.6 F 66 19 141/69 H 94 L 04/19/18 02:29 93 L Weight Weight 181 lb 14.4 oz I&O: 04/18/18 04/19/18 04/20/18 06:59 06:59 06:59 Intake Total 1410 600 300 Output Total 925 Balance 485 600 300 Result Diagrams: 04/19/18 04:51 04/20/18 10:05 Additional Labs: labs reviewed by me EKG Reviewed by me: Yes (Tele: NSR) Phys Exam - Physical Examination Constitutional: NAD HEENT: moist MMs, sclera anicteric, oral pharynx no lesions, 2+ tonsils Neck: no nodes, supple, full ROM JVD Respiratory: wheezing present Cardiovascular: RRR, no rub S1, s2 Gastrointestinal: soft, non-tender, no distention, positive bowel sounds Musculoskeletal: edema present Neurological: moves all 4 limbs Psychiatric: normal affect, A&O x 3 Dx/Plan (1) Multifocal pneumonia Code(s): J18.9 - PNEUMONIA, UNSPECIFIED ORGANISM Status: Acute Comment: suspecting streptococal; continue IV ceftriaxone and azithromycin. (2) Acute systolic CHF (congestive heart failure), NYHA class 3 Code(s): I50.21 - ACUTE SYSTOLIC (CONGESTIVE) HEART FAILURE Status: Acute Comment: continue furosemide (3) BPH (benign prostatic hyperplasia) Code(s): N40.0 - BENIGN PROSTATIC HYPERPLASIA WITHOUT LOWER URINRY TRACT SYMP Status: Chronic Comment: stable (4) CAD (coronary artery disease) Code(s): I25.10 - ATHSCL HEART DISEASE OF [place] CORONARY ARTERY W/O ANG PCTRS Status: Chronic Qualifiers: Coronary Disease-Associated Artery/Lesion type: [place] artery [place] vs. transplanted heart: [place] heart Associated angina: without angina Qualified Code(s): I25.10 - Atherosclerotic heart disease of [place] coronary artery without angina pectoris Comment: stable (5) Dyslipidemia Code(s): E78.5 - HYPERLIPIDEMIA, UNSPECIFIED Status: Chronic Comment: continue statin (6) HTN (hypertension) Code(s): I10 - ESSENTIAL (PRIMARY) HYPERTENSION Status: Chronic Comment: monitor vital signs, titrate antihypertensives as needed (7) Sepsis due to pneumonia Code(s): J18.9 - PNEUMONIA, UNSPECIFIED ORGANISM; A41.9 - SEPSIS, UNSPECIFIED ORGANISM Status: Resolved - Plan * . Review of Systems - Review of Systems Constitutional: negative: fever, chills, sweats, weakness, malaise Respiratory: Cough, Sputum. negative: Shortness of Breath, SOB with Excertion, Pleuritic Pain, Wheezing Cardiovascular: negative: chest pain, palpitations, orthopnea, paroxysmal nocturnal dyspnea, edema, light headedness Gastrointestinal: negative: Nausea, Vomiting, Abdominal Pain, Diarrhea, Constipation, Melena, Hematochezia Skin: negative: Rash, Lesions, Zeus, Bruising - Medications/Allergies Allergies/Adverse Reactions: Allergies Allergy/AdvReac Type Severity Reaction Status Date / Time Iqwtquc-Eqa-Nqm Reductase Allergy Intermediate Muscle Verified 04/16/18 18:10 Inhibitor spasms amiodarone Allergy Verified 07/14/14 15:48 chloramphenicol Allergy Verified 07/14/14 15:48 [From Chloromycetin] ciprofloxacin HCl Allergy Verified 07/14/14 15:48 [From Cipro] doxycycline Allergy Verified 07/14/14 15:48 erythromycin base Allergy Verified 07/14/14 15:48 Sulfa (Sulfonamide Allergy Verified 07/14/14 15:48 Antibiotics) Medications: Current Medications Acetaminophen (Tylenol) 650 mg PO Q4H PRN PRN Reason: Headache/Fever/Mild Pain (1-3) Last Admin: 04/18/18 05:23 Dose: 650 mg Acetaminophen (Tylenol) 500 mg PO Q6H PRN PRN Reason: Mild Pain (1-3) Hydrocodone Bitart/Acetaminophen ([place] 5/325) 1 tab PO Q4H PRN PRN Reason: Moderate Pain (4-6) Albuterol/Ipratropium (Duoneb) 3 ml NEB [id number] [facility] Last Admin: 04/19/18 10:23 Dose: 3 ml Apixaban (Eliquis) 5 mg PO BID [facility] Last Admin: 04/19/18 08:45 Dose: 5 mg Artificial Tears (Tears Naturale) 2 drop EA EYE PRN PRN PRN Reason: Dry Eyes Bisacodyl (Dulcolax) 10 mg PO DAILYPRN PRN PRN Reason: Constipation Carvedilol (Coreg) 12.5 mg PO BID [facility] Last Admin: 04/19/18 08:45 Dose: 12.5 mg Dutasteride (Avodart) 0.5 mg PO DAILY [facility] Last Admin: 04/19/18 08:45 Dose: 0.5 mg Famotidine (Pepcid) 20 mg PO BID [facility] Last Admin: 04/19/18 08:45 Dose: 20 mg Fish Oil (Fish Oil) 4,000 mg PO HS [facility] Last Admin: 04/18/18 21:16 Dose: 4,000 mg Furosemide (Lasix) 20 mg PO DAILY [facility] Last Admin: 04/19/18 08:45 Dose: 20 mg Furosemide (Lasix) 20 mg SLOW IVP NOW [facility] Stop: 04/19/18 13:00 Last Admin: 04/19/18 11:07 Dose: 20 mg Gabapentin (Neurontin) 300 mg PO BID [facility] Last Admin: 04/19/18 08:45 Dose: 300 mg Guaifenesin (Robitussin Sf) 200 mg PO Q4H PRN PRN Reason: Cough Last Admin: 04/19/18 11:06 Dose: 200 mg Guaifenesin/Dextromethorphan (Robitussin Dm) 10 ml PO Q6H PRN PRN Reason: Cough Last Admin: 04/17/18 21:43 Dose: 10 ml Hydralazine HCl (Apresoline) 10 mg SLOW IVP Q4H PRN PRN Reason: SBP > 180 and HR < 70 Hydroxyzine HCl (Atarax) 25 mg PO QAM [facility] Last Admin: 04/19/18 08:46 Dose: 25 mg Azithromycin 500 mg/ Sodium (Chloride) 250 mls @ 250 mls/hr IVPB 1400 [facility] Last Admin: 04/19/18 12:22 Dose: 250 mls Ceftriaxone Sodium 1 gm/ (Sodium Chloride) 100 mls @ 200 mls/hr IVPB 1500 [facility] Last Admin: 04/18/18 18:37 Dose: 100 mls Loperamide HCl (Imodium) 2 mg PO PRN PRN PRN Reason: Diarrhea/Loose Stools Loratadine (Claritin) 10 mg PO DAILYPRN PRN PRN Reason: Sinus Symptoms Lysine (L-Lysine) 500 mg PO DAILY [facility] Last Admin: 04/19/18 08:46 Dose: 500 mg Melatonin (Melatonin) 3 mg PO [facility] Last Admin: 04/18/18 21:16 Dose: 3 mg Mineral Oil/White Petrolatum (Eucerin Cream) 0 gm TOP BIDPRN PRN PRN Reason: Dry Skin Ondansetron HCl (Zofran Odt) 4 mg SL Q6H PRN PRN Reason: Nausea/Vomiting Last Admin: 04/17/18 21:50 Dose: 4 mg Ondansetron HCl (Zofran) 4 mg IVP Q6H PRN PRN Reason: Nausea/Vomiting Potassium Chloride (K-Dur) 20 meq PO TID [facility] Last Admin: 04/19/18 08:46 Dose: 20 meq Saccharomyces Boulardii (Florastor) 250 mg PO DAILY [facility] Last Admin: 04/19/18 08:46 Dose: 250 mg Sacubitril/Valsartan (Entresto 24.5 Mg-25.5 Mg Tablet) 1 tab PO BID [facility] Last Admin: 04/19/18 08:46 Dose: 1 tab Senna/Docusate Sodium (Senokot S) 2 tab PO BID PRN PRN Reason: Constipation Sodium Chloride (Flush - Normal Saline) 10 ml IVF PRN PRN PRN Reason: Saline Flush Last Admin: 04/18/18 21:16 Dose: 10 ml Sodium Chloride ([place] Nasal [place] 0.65%) 0 ml EA NARE QIDPRN PRN PRN Reason: Nasal Congestion Throat Lozenges (Cepastat Lozenges) 1 lois PO PRN PRN PRN Reason: SORE THROAT Last Admin: 04/19/18 11:07 Dose: 1 lois Zolpidem Tartrate (Ambien) 5 mg PO HSPRN PRN PRN Reason: Insomnia
--- NOTE | 2018-04-19 13:59 | RAD ---
CHEST 1 VIEW: History Cough. Wheezing. COMPARISON: 04/16/2018. FINDINGS: Cardiac silhouette is magnified and enlarged. Pulmonary vasculature upper limits of normal. Mediast inum midline with postoperative changes. No lobar consolidation or evidence of pneumothorax. IMPRESSION: Cardiomegaly. Borderline pulmonary vascular congestion. POS: [facility]
[2018-04-19] MEDS: cefTRIAXone\\ROCEPHIN 1 GM in Sodium Chloride 0.9% 100 ML IVPB SCH (14:02)
--- NOTE | 2018-04-19 14:09 | PDOC.CTH ---
Cardiology Progress Note - Subjective Complaint of gurgling. Denies SOB, but still has a cough. Denies CP. - Objective Vital Signs Temp Pulse Resp BP Pulse Ox 04/19/18 11:42 98.8 F 68 17 149/71 H 92 L 04/19/18 10:23 85 18 95 04/19/18 07:40 99 04/19/18 07:25 99.4 F 68 16 162/74 H 93 L 04/19/18 06:59 71 16 94 L 04/19/18 04:00 98.6 F 66 19 141/69 H 94 L 04/19/18 02:29 93 L Weight 181 lb 14.4 oz 04/18/18 04/19/18 04/20/18 06:59 06:59 06:59 Intake Total 1410 600 600 Output Total 925 Balance 485 600 600 - Physical Examination General/Neuro: alert & oriented x3 Neck: no JVD present Lungs: other: (scattered rales) Heart: RRR Abdomen: NT/ND Extremities: + edema B - Telemetry Telemetry Rhythm: SR with BBB - Labs Result Diagrams: 04/19/18 04:51 04/19/18 04:51 Troponin/CKMB Troponin I 0.026 ng/mL (< 0.028) 04/16/18 12:44 - Assessment/Plan 1. Acute systolic CHF 2. 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 LBBB 4. PNA Continue antibiotics. CXR shows acute CHF. Give additional IV lasix. Monitor BP. Elevated today. May increase Entresto dosage if remains high. Patient was previously on 160mg valsartan prior to change. [facility] came today to fit patient, but no vests available. Coming back to fit with vest. Pt seen and examined. Agree with lasix and increase entresto. Awaiting lifevest.
[2018-04-19] MEDS: Fish Oil 1,000 MG CAP PO SCH (20:36)
[2018-04-19] MEDS: Melatonin 3 MG TAB PO SCH (20:40)
[2018-04-20] MEDS: Potassium Chloride 20 MEQ TAB PO SCH ×3 (08:20→21:06)
[2018-04-20] MEDS: Dutasteride 0.5 MG CAP PO SCH (08:20)
[2018-04-20] MEDS: Apixaban 5 MG TAB PO SCH ×2 (08:20→21:05)
[2018-04-20] MEDS: Lysine 500 MG TAB PO SCH (08:20)
[2018-04-20] MEDS: Sacubitril 24.5 MG/Valsartan 25.5 MG TABLET PO SCH ×2 (08:20→21:07)
[2018-04-20] MEDS: Famotidine 20 MG TAB PO SCH ×2 (08:21→21:06)
[2018-04-20] MEDS: Carvedilol 25 MG TAB PO SCH ×2 (08:21→21:05)
[2018-04-20] MEDS: Saccharomyces boulardii 250 MG CAP PO SCH (08:22)
[2018-04-20] MEDS: Furosemide 20 MG TAB PO SCH (08:22)
[2018-04-20] MEDS: Gabapentin 300 MG CAP PO SCH ×2 (08:22→21:07)
[2018-04-20] MEDS: hydrOXYzine 25 MG TAB PO SCH (08:23)
[2018-04-20 10:41] LABS: Anion Gap 10 mmol/L (10-20); BUN (Urea Nitrogen) 14 mg/dL (8.4-25.7); Calc. Creatinine Clearance 94 mL/min (70-130); Calcium 8.3 mg/dL (7.8-10.44); Carbon Dioxide 27 mmol/L (23-31); Chloride 101 mmol/L (98-107); Estimated GFR-MDRD Greater than 90; Glucose 112 mg/dL (83-110); Potassium 4.1 mmol/L (3.5-5.1); Sodium 134 mmol/L (136-145)
[2018-04-20] MEDS ORDERED: Furosemide 40 MG/4 ML VIAL SLOW IVP SCH (11:30)
--- NOTE | 2018-04-20 12:27 | PDOC.CTH ---
Cardiology Progress Note - Subjective Still with cough/congestion, but improved. Walking in [place] without difficulty. - Objective Vital Signs Temp Pulse Resp BP Pulse Ox 04/20/18 11:33 98.4 F 55 L 20 126/64 94 L 04/20/18 10:51 55 L 18 95 04/20/18 08:02 58 L 16 96 04/20/18 07:48 98.3 F 57 L 16 154/74 H 94 L 04/20/18 03:43 98.5 F 55 L 16 118/56 L 93 L 04/20/18 02:04 57 L 14 93 L Weight 181 lb 14.4 oz 04/19/18 04/20/18 04/21/18 06:59 06:59 06:59 Intake Total 600 900 990 Output Total 1500 Balance 600 -600 990 - Physical Examination General/Neuro: alert & oriented x3 Neck: no JVD present Lungs: other: (coarse, tight BS) Heart: RRR Abdomen: NT/ND Extremities: other: (no edema) - Labs Result Diagrams: 04/19/18 04:51 04/20/18 10:05 Troponin/CKMB Troponin I 0.026 ng/mL (< 0.028) 04/16/18 12:44 - Assessment/Plan 1. 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 LBBB 4. PNA 5. HTN BNP 1240 today. Lasix IV given again with KCl. Continue diuresis. LifeVest to be placed tonight. probable discharge tomorrow. Agree with the above. Pt is close to discharge. Once he has lifevest, ok for DC with outpatient fu
[2018-04-20] MEDS: Azithromycin 500 MG in Sodium Chloride 0.9% 250 ML 250 ML IVPB SCH (14:28)
[2018-04-20] MEDS: cefTRIAXone\\ROCEPHIN 1 GM in Sodium Chloride 0.9% 100 ML IVPB SCH (15:44)
--- NOTE | 2018-04-20 16:56 | PDOC.PN ---
- Subjective Encounter Start Date: 04/20/18 Encounter Start Time: 16:57 Pt seen for followup re: pneumonia. Cough+. Whitish sputum+. - Objective Resuscitation Status - Order Detail: 04/16/18 17:49 Resuscitation Status Routine Co-Sign Provider: Resuscitation Status: FULL: Full Resuscitation MAR Reviewed: Yes Vital Signs & Weight: Vital Signs (12 hours) Temp Pulse Resp BP Pulse Ox 04/20/18 16:00 98.0 F 55 L 18 114/58 L 93 L 04/20/18 14:52 58 L 16 96 04/20/18 11:33 98.4 F 55 L 20 126/64 94 L 04/20/18 10:51 55 L 18 95 04/20/18 08:02 58 L 16 96 04/20/18 07:48 98.3 F 57 L 16 154/74 H 94 L Weight Weight 181 lb 14.4 oz I&O: 04/19/18 04/20/18 04/21/18 06:59 06:59 06:59 Intake Total 999 253 7186 Output Total 1500 Balance 600 -600 1618 Result Diagrams: 04/21/18 04:29 04/21/18 04:29 EKG Reviewed by me: Yes (Tele: NSR) Phys Exam - Physical Examination Constitutional: NAD HEENT: moist MMs Respiratory: clear to auscultation bilateral Cardiovascular: RRR Gastrointestinal: soft Neurological: moves all 4 limbs Psychiatric: normal affect Skin: no rash Dx/Plan (1) Multifocal pneumonia Code(s): J18.9 - PNEUMONIA, UNSPECIFIED ORGANISM Status: Acute Comment: change antibiotic to omnicef (2) Acute systolic CHF (congestive heart failure), NYHA class 3 Code(s): I50.21 - ACUTE SYSTOLIC (CONGESTIVE) HEART FAILURE Status: Acute Comment: on furosemide (3) BPH (benign prostatic hyperplasia) Code(s): N40.0 - BENIGN PROSTATIC HYPERPLASIA WITHOUT LOWER URINRY TRACT SYMP Status: Chronic Comment: stable (4) CAD (coronary artery disease) Code(s): I25.10 - ATHSCL HEART DISEASE OF [place] CORONARY ARTERY W/O ANG PCTRS Status: Chronic Qualifiers: Coronary Disease-Associated Artery/Lesion type: [place] artery [place] vs. transplanted heart: [place] heart Associated angina: without angina Qualified Code(s): I25.10 - Atherosclerotic heart disease of [place] coronary artery without angina pectoris Comment: stable (5) Dyslipidemia Code(s): E78.5 - HYPERLIPIDEMIA, UNSPECIFIED Status: Chronic Comment: on statin (6) HTN (hypertension) Code(s): I10 - ESSENTIAL (PRIMARY) HYPERTENSION Status: Chronic Comment: controlled (7) Sepsis due to pneumonia Code(s): J18.9 - PNEUMONIA, UNSPECIFIED ORGANISM; A41.9 - SEPSIS, UNSPECIFIED ORGANISM Status: Resolved - Plan * . Review of Systems - Review of Systems Respiratory: Cough, Sputum. negative: Dry, Shortness of Breath, Hemoptysis, SOB with Excertion, Pleuritic Pain, Wheezing Cardiovascular: negative: chest pain, palpitations, orthopnea, paroxysmal nocturnal dyspnea, edema, light headedness - Medications/Allergies Allergies/Adverse Reactions: Allergies Allergy/AdvReac Type Severity Reaction Status Date / Time Crqdtzy-Aly-Buk Reductase Allergy Intermediate Muscle Verified 04/16/18 18:10 Inhibitor spasms amiodarone Allergy Verified 07/14/14 15:48 chloramphenicol Allergy Verified 07/14/14 15:48 [From Chloromycetin] ciprofloxacin HCl Allergy Verified 07/14/14 15:48 [From Cipro] doxycycline Allergy Verified 07/14/14 15:48 erythromycin base Allergy Verified 07/14/14 15:48 Sulfa (Sulfonamide Allergy Verified 07/14/14 15:48 Antibiotics) Medications: Current Medications Acetaminophen (Tylenol) 650 mg PO Q4H PRN PRN Reason: Headache/Fever/Mild Pain (1-3) Last Admin: 04/18/18 05:23 Dose: 650 mg Acetaminophen (Tylenol) 500 mg PO Q6H PRN PRN Reason: Mild Pain (1-3) Hydrocodone Bitart/Acetaminophen ([place] 5/325) 1 tab PO Q4H PRN PRN Reason: Moderate Pain (4-6) Albuterol/Ipratropium (Duoneb) 3 ml NEB [id number] BEBE Last Admin: 04/20/18 14:52 Dose: 3 ml Apixaban (Eliquis) 5 mg PO BID [facility] Last Admin: 04/20/18 08:20 Dose: 5 mg Artificial Tears (Tears Naturale) 2 drop EA EYE PRN PRN PRN Reason: Dry Eyes Bisacodyl (Dulcolax) 10 mg PO DAILYPRN PRN PRN Reason: Constipation Carvedilol (Coreg) 12.5 mg PO BID [facility] Last Admin: 04/20/18 08:21 Dose: 12.5 mg Cefdinir (Omnicef) 300 mg PO BID [facility] Dutasteride (Avodart) 0.5 mg PO DAILY [facility] Last Admin: 04/20/18 08:20 Dose: 0.5 mg Famotidine (Pepcid) 20 mg PO BID [facility] Last Admin: 04/20/18 08:21 Dose: 20 mg Fish Oil (Fish Oil) 4,000 mg PO HS [facility] Last Admin: 04/19/18 20:36 Dose: 4,000 mg Furosemide (Lasix) 20 mg PO DAILY [facility] Last Admin: 04/20/18 08:22 Dose: 20 mg Gabapentin (Neurontin) 300 mg PO BID [facility] Last Admin: 04/20/18 08:22 Dose: 300 mg Guaifenesin (Robitussin Sf) 200 mg PO Q4H PRN PRN Reason: Cough Last Admin: 04/19/18 20:41 Dose: 200 mg Guaifenesin/Dextromethorphan (Robitussin Dm) 10 ml PO Q6H PRN PRN Reason: Cough Last Admin: 04/17/18 21:43 Dose: 10 ml Hydralazine HCl (Apresoline) 10 mg SLOW IVP Q4H PRN PRN Reason: SBP > 180 and HR < 70 Hydroxyzine HCl (Atarax) 25 mg PO [facility] Last Admin: 04/20/18 08:23 Dose: 25 mg Loperamide HCl (Imodium) 2 mg PO PRN PRN PRN Reason: Diarrhea/Loose Stools Loratadine (Claritin) 10 mg PO DAILYPRN PRN PRN Reason: Sinus Symptoms Lysine (L-Lysine) 500 mg PO DAILY [facility] Last Admin: 04/20/18 08:20 Dose: 500 mg Melatonin (Melatonin) 3 mg PO [facility] Last Admin: 04/19/18 20:40 Dose: 3 mg Mineral Oil/White Petrolatum (Eucerin Cream) 0 gm TOP BIDPRN PRN PRN Reason: Dry Skin Ondansetron HCl (Zofran Odt) 4 mg SL Q6H PRN PRN Reason: Nausea/Vomiting Last Admin: 04/17/18 21:50 Dose: 4 mg Ondansetron HCl (Zofran) 4 mg IVP Q6H PRN PRN Reason: Nausea/Vomiting Potassium Chloride (K-Dur) 20 meq PO TID [facility] Last Admin: 04/20/18 14:28 Dose: 20 meq Saccharomyces Boulardii (Florastor) 250 mg PO DAILY [facility] Last Admin: 04/20/18 08:22 Dose: 250 mg Sacubitril/Valsartan (Entresto 24.5 Mg-25.5 Mg Tablet) 1 tab PO BID [facility] Last Admin: 04/20/18 08:20 Dose: 1 tab Senna/Docusate Sodium (Senokot S) 2 tab PO BID PRN PRN Reason: Constipation Sodium Chloride (Flush - Normal Saline) 10 ml IVF PRN PRN PRN Reason: Saline Flush Last Admin: 04/18/18 21:16 Dose: 10 ml Sodium Chloride ([place] Nasal [place] 0.65%) 0 ml EA NARE QIDPRN PRN PRN Reason: Nasal Congestion Throat Lozenges (Cepastat Lozenges) 1 lois PO PRN PRN PRN Reason: SORE THROAT Last Admin: 04/19/18 11:07 Dose: 1 lois Zolpidem Tartrate (Ambien) 5 mg PO HSPRN PRN PRN Reason: Insomnia
[2018-04-20] MEDS: Cefdinir 300 MG CAP PO SCH (21:06)
[2018-04-20] MEDS: Fish Oil 1,000 MG CAP PO SCH (21:07)
[2018-04-20] MEDS: Melatonin 3 MG TAB PO SCH (21:07)
[2018-04-20] MEDS: Diabetic Tussin 200 MG/10 ML UDCUP PO PRN (23:04)
[2018-04-21 05:22] LABS: #Eosinphils 0.3 thou/uL (0.0-0.7); #Lymphocytes 1.5 thou/uL (1.20-3.40); #Neutrophils 4.9 thou/uL (1.40-6.50); %Basophils 0.3 % (0.0-1.0); %Eosinophils 4.4 % (0.0-10.0); %Lymphocytes 19.4 % (21.0-51.0); %Monocytes 12.2 % (0.0-10.0); %Neutrophils 63.6 % (42.0-75.0); Hemoglobin 12.6 g/dL (14.0-18.0); Mean Corpuscular HGB CONC 33.4 g/dL (32.0-36.0); Mean Corpuscular Hemoglobin 31.3 pg (27.0-31.0); Mean Corpuscular Volume 93.8 fL (78.0-98.0); Mean Platelet Volume 9.3 fL (7.4-10.4); Platelet Count 136 thou/uL (130-400); RBC Distribution Width 12.1 % (11.5-14.5); Red Blood Cell (RBC) Count 4.04 mill/uL (4.70-6.10); White Blood Cell (WBC) Count 7.8 thou/uL (4.8-10.8)
[2018-04-21 05:41] LABS: Anion Gap 14 mmol/L (10-20); BUN (Urea Nitrogen) 11 mg/dL (8.4-25.7); Calc. Creatinine Clearance 116 mL/min (70-130); Carbon Dioxide 26 mmol/L (23-31); Chloride 101 mmol/L (98-107); Estimated GFR-MDRD Greater than 90; Glucose 92 mg/dL (83-110); Potassium 4.5 mmol/L (3.5-5.1); Sodium 136 mmol/L (136-145)
[2018-04-21] MEDS: Lysine 500 MG TAB PO SCH (08:29)
[2018-04-21] MEDS: Sacubitril 24.5 MG/Valsartan 25.5 MG TABLET PO SCH (08:29)
[2018-04-21] MEDS: hydrOXYzine 25 MG TAB PO SCH (08:30)
[2018-04-21] MEDS: Apixaban 5 MG TAB PO SCH (08:30)
[2018-04-21] MEDS: Cefdinir 300 MG CAP PO SCH (08:30)
[2018-04-21] MEDS: Potassium Chloride 20 MEQ TAB PO SCH ×2 (08:31→15:40)
[2018-04-21] MEDS: Carvedilol 25 MG TAB PO SCH (08:31)
[2018-04-21] MEDS: Dutasteride 0.5 MG CAP PO SCH (08:32)
[2018-04-21] MEDS: Gabapentin 300 MG CAP PO SCH (08:32)
[2018-04-21] MEDS: Furosemide 20 MG TAB PO SCH (08:32)
[2018-04-21] MEDS: Saccharomyces boulardii 250 MG CAP PO SCH (08:33)
[2018-04-21] MEDS: Diabetic Tussin 200 MG/10 ML UDCUP PO PRN (08:33)
[2018-04-21] MEDS: Famotidine 20 MG TAB PO SCH (08:33)
[2018-04-21 12:36] VITALS: BP 147/67
[2018-04-21 16:05] VITALS: TEMP 97.5
--- NOTE | 2018-04-22 04:30 | DIS ---
DATE OF ADMISSION: 04/17/2018 DATE OF DISCHARGE: 04/21/2018 PRIMARY CARE PROVIDER: Dr. Moises Tang. DISCHARGE DIAGNOSES: 1. Multifocal pneumonia. 2. Acute systolic congestive heart failure. 3. Cardiomyopathy. 4. Cholelithiasis. CONDITION OF PATIENT ON THE DAY OF DISCHARGE: Stable. I assessed Mr. Oconnor on the day of discharge. He denies any chest pain or shortness of breath. Vital signs are stable. S1 and S2 heard, regular. Lungs are clear to auscultation bilaterally. DISCHARGE MEDICATIONS: Valsartan has been discontinued. He is being discharged home on Entresto 24.5/25.5 mg two times a day, Florastor 250 mg daily for 10 days, and cefdinir 300 mg two times a day for 10 days. Otherwise, no change was made to his preadmission home medications as dictated in Mr. Frankel's history and physical note dated April 16, 2018. CONSULTATIONS DURING THIS HOSPITALIZATION: Cardiology, Dr. Armstrong. HOSPITAL COURSE: Mr. Oconnor is a pleasant 77-year-old gentleman who was admitted to [facility] on April 16, 2018, for pneumonia and shortness of breath. He had an elevated BNP. He had a 2D echocardiogram, which showed left ventricular ejection fraction of 30% to 35% and grade 3/3 diastolic dysfunction. He also had global hypokinesis, mildly dilated right ventricle with normal right ventricular systolic function. He has moderate aortic regurgitation and mild tricuspid regurgitation. He had elevated right ventricular systolic pressure estimated at 40 mmHg. He was seen by Cardiology Service. Cardiology Service felt that the reduced ejection fraction on echo may be ischemic and may be related to multilobar pneumonia. They feel that he will need a heart catheterization in the near future once he recovers from pneumonia. He was treated with diuretics as well as intravenous antibiotics. He improved clinically. He had ultrasound of the abdomen because CT scan of the chest done on April 16, 2018, showed cholelithiasis with possible acute cholecystitis. Abdominal ultrasound showed cholelithiasis, gallbladder wall thickening, and trace amount of free fluid. He went on to have a HIDA scan, which did not show any evidence of cystic or common duct obstruction. Gallbladder activity was visualized after morphine administration. Mr. Oconnor continued to improve clinically. He is being fitted with a LifeVest prior to discharge. On the day of discharge, Mr. Oconnor has sodium 136, potassium 4.5, and creatinine 0.62; white count 7800, hemoglobin 12.6, and platelet count 136,000. His BNP during this hospitalization was 1232. At the time of this dictation, final blood culture did not show any growth. A second blood sample had no growth at 48 hours. He had stool studies which were negative for Clostridium difficile antigen and toxin. Stool studies were also negative for E. coli shiga toxin 1 and 2 and Campylobacter antigen. Final respiratory culture showed moderate normal respiratory tomas including few gram-negative rods. Many thanks for allowing me to participate in your patient's care. Please feel free to contact me with any questions or concerns. DISCHARGE DISPOSITION: Home. TOTAL AMOUNT OF TIME SPENT COORDINATING THIS DISCHARGE: Thirty-three minutes. Job ID: [id number] MTDD
--- NOTE | 2018-04-24 06:16 | PQF ---
FLAQUITA NEGRONNANCY SANCHES [id number] [facility] [id number] CLINICAL DOCUMENTATION CLARIFICATION FORM: POST DISCHARGE DATE: 04/24/2018 Dr. Alvarado Please exercise your independent, professional judgment in responding to the clarification form. Clinical indicators are provided on the bottom of this form for your review Please check appropriate box(s) to clarify if the following diagnosis has been ruled in or ruled out: Sepsis [ ] Ruled in diagnosis [ ] Continue to treat [ ] Resolved [ X ] Ruled out diagnosis [ ] Cannot rule out diagnosis [ ] Other diagnosis (please specify) [ ] Unable to determine In addition, please specify: Present on Admission (POA): [ ] Yes [ ] No [ ] Unable to determine For continuity of documentation, please document condition throughout progress notes and discharge summary. Thank You. CLINICAL INDICATORS - SIGNS / SYMPTOMS / LABS Per H&P: Fever on and off over the last several days of up to 100.2. He does report fever, chills, generalized weakness, cough and mild shortness of breath. Per hospitalist progress notes: Sepsis due to pneumonia. RISK FACTORS Pneumonia. TREATMENTS IV Rocephin. IV Azithromycin. (This form is maintained as a part of the permanent medical record) 2014 [employer]. All Rights Reserved [email or web address] [phone] GILBERTO
== END 2018-04-21 16:12 | disposition home or self-care (01) | DRG 291 ==
LOC: ERS 11:52 → ONC 16:56 → OBSVTOIN 04-17 15:43 → 2SE 04-17 16:31
PROVIDERS: ADMIT Internal Medicine Infectious Disease; ATTEND Internal Medicine Infectious Disease
DX: I11.0 Hypertensive heart disease with heart failure (principal); I50.21 Acute systolic (congestive) heart failure; J18.9 Pneumonia, unspecified organism; I42.9 Cardiomyopathy, unspecified; I48.0 Paroxysmal atrial fibrillation; I25.10 Atherosclerotic heart disease of native coronary artery without angina pectoris; E78.5 Hyperlipidemia, unspecified; K80.20 Calculus of gallbladder without cholecystitis without obstruction; N40.0 Benign prostatic hyperplasia without lower urinary tract symptoms; D69.6 Thrombocytopenia, unspecified; Z88.1 Allergy status to other antibiotic agents; Z88.2 Allergy status to sulfonamides; Z88.8 Allergy status to other drugs, medicaments and biological substances; Z79.899 Other long term (current) drug therapy; Z95.5 Presence of coronary angioplasty implant and graft; Z95.1 Presence of aortocoronary bypass graft
CPT/HCPCS: 36415; 71045; 71046; 71260; 76705; 78227; 80048; 80053; 83605; 83880; 84484; 85025; 87040; 87045; 87046; 87070; 87205; 87324; 87449; 87804; 87899; 93005; 93306; 93798; 94640; 96365; 96367; A9537; J0456; J0696; J1940; J2270; J7050; J7620; Q0162

== ENCOUNTER 2018-09-16 12:52 | Outpatient (CLI) | payer MEDICARE ==
--- NOTE | 2018-09-16 13:14 | RAD ---
XR Chest Pa Lat @ [facility] HISTORY: Dyspnea COMPARISON: 04/19/2018. FINDINGS: The heart size is normal. The lungs are well expanded without focal areas of consolidation, pneumothorax or pleural effusions. Changes of median sternotomy are again seen. There is been interval placement of a left-sided pacemaker device. No acute osseous abnormalities are identified. IMPRESSION: No radiographic evidence of acute cardiopulmonary process.
== END 2018-09-16 12:53 | disposition home or self-care (01) ==
LOC: RAD 12:52
PROVIDERS: ATTEND Internal Medicine Critical Care Medicine
DX: R06.00 Dyspnea, unspecified (principal)
CPT/HCPCS: 71046

== ENCOUNTER 2022-01-16 07:09 | Day surgery (SDC) | payer MEDICARE ==
[2022-01-15 12:40] VITALS: BMI 30.5
[2022-01-16] MEDS ORDERED: Acetaminophen 500 MG TAB ONE ×2 (08:36→09:27)
[2022-01-16] MEDS ORDERED: Lidocaine 1% MPF 2 ML VIAL ONE (08:41)
[2022-01-16] MEDS ORDERED: PROPOFOL 200 MG/20 ML VIAL ONE (08:41)
== END 2022-01-16 10:09 | disposition home or self-care (01) ==
LOC: SDC 07:09
PROVIDERS: ATTEND Internal Medicine Gastroenterology
PROC: 0DJD8ZZ Inspection of Lower Intestinal Tract, Via Natural or Artificial Opening Endoscopic (ICD-10-PCS; principal; 2022-01-16)
DX: K64.8 Other hemorrhoids (principal); K64.4 Residual hemorrhoidal skin tags; K55.20 Angiodysplasia of colon without hemorrhage; K63.3 Ulcer of intestine; I48.91 Unspecified atrial fibrillation; I11.0 Hypertensive heart disease with heart failure; I50.9 Heart failure, unspecified; E78.00 Pure hypercholesterolemia, unspecified; I25.10 Atherosclerotic heart disease of native coronary artery without angina pectoris; Z86.73 Personal history of transient ischemic attack (TIA), and cerebral infarction without residual deficits; Z87.11 Personal history of peptic ulcer disease; Z87.891 Personal history of nicotine dependence; Z79.01 Long term (current) use of anticoagulants; Z79.899 Other long term (current) drug therapy; Z95.1 Presence of aortocoronary bypass graft; Z95.5 Presence of coronary angioplasty implant and graft
CPT/HCPCS: J2704

== ENCOUNTER 2022-01-26 15:45 | Outpatient (CLI) | payer MEDICARE ==
[2022-01-26 17:27] LABS: #Basophils 0.1 10x3/uL (0.0-0.2); #Eosinphils 0.2 10x3/uL (0.0-0.5); #Monocytes 0.6 10x3/uL (0.0-1.1); #Neutrophils 6.8 10x3/uL (1.5-8.4); %Basophils 0.6 % (0.0-2.0); %Eosinophils 2.1 % (0.0-6.0); %Lymphocytes 12.9 % (18.0-47.0); %Monocytes 7.2 % (0.0-10.0); %Neutrophils 76.8 % (40.0-75.0); Hemoglobin 9.6 g/dL (13.5-17.5); Mean Corpuscular HGB CONC 33.4 g/dL (32.0-36.0); Mean Corpuscular Hemoglobin 32.4 pg (27.0-33.0); Mean Platelet Volume 10.3 fl (7.4-10.4); Platelet Count 240 10x3/uL (150-450); RBC Distribution Width 13.7 % (11.5-14.5); Red Blood Cell (RBC) Count 2.96 10x6/uL (4.32-5.72); White Blood Cell (WBC) Count 8.9 10x3/uL (3.5-10.5)
[2022-01-26 17:37] LABS: Anion Gap 16 mmol/L (10-20); BUN (Urea Nitrogen) 10 mg/dL (8.4-25.7); Calc. Creatinine Clearance 0 mL/min (70-130); Calcium 8.7 mg/dL (7.8-10.44); Carbon Dioxide 26 mmol/L (23-31); Chloride 101 mmol/L (98-107); Estimated GFR 85; Glucose 140 mg/dL (83-110); Sodium 139 mmol/L (136-145)
== END 2022-01-26 15:46 | disposition home or self-care (01) ==
LOC: LABBT 15:45
PROVIDERS: ATTEND Specialist
DX: Z01.818 Encounter for other preprocedural examination (principal); Z20.822 Contact with and (suspected) exposure to COVID-19
CPT/HCPCS: 80048; 85025; 87811; 93005; 93010

== ENCOUNTER 2022-01-31 08:03 | Day surgery (SDC) | payer MEDICARE ==
[2022-01-30 12:38] VITALS: BMI 32.3
[2022-01-31] MEDS ORDERED: Acetaminophen 500 MG TAB ONE ×2 (08:43→13:19)
[2022-01-31] MEDS ORDERED: Ketorolac Tromethamine 30 MG/ML VIAL ONE (08:43)
[2022-01-31] MEDS ORDERED: cefOXitin 2 GM VIAL ONE (09:20)
[2022-01-31] MEDS ORDERED: Sodium Chloride 0.9% 100 ML ONE (09:20)
[2022-01-31] MEDS ORDERED: metroNIDAZOLE 500 MG/100 ML BAG ONE (09:21)
[2022-01-31] MEDS ORDERED: Lidocaine 2% PF 5 ML VIAL ONE (10:56)
[2022-01-31] MEDS ORDERED: EPINEPHrine 1 MG/ML AMP ONE (10:56)
[2022-01-31] MEDS ORDERED: Lidocaine 2% Jelly 5 ML TUBE ONE (10:56)
[2022-01-31] MEDS ORDERED: Bupivacaine PF 0.5% 30 ML VIAL ONE (10:56)
[2022-01-31] MEDS ORDERED: Phenylephrine 10 MG/ML VIAL ONE (10:58)
[2022-01-31] MEDS ORDERED: fentaNYL Citrate/PF 100 MCG/2 ML SYRINGE ONE (10:58)
[2022-01-31] MEDS ORDERED: HYDROmorphone 0.5 MG/0.5 ML SYRINGE ONE (10:58)
[2022-01-31] MEDS ORDERED: SUGAMMADEX SODIUM 200 MG/2 ML VIAL ONE (11:12)
[2022-01-31] MEDS ORDERED: PROPOFOL 200 MG/20 ML VIAL ONE (11:14)
[2022-01-31] MEDS ORDERED: ePHEDrine 50 MG/ML VIAL ONE (11:14)
[2022-01-31] MEDS ORDERED: Dexamethasone 20 MG/5 ML VIAL ONE (11:14)
[2022-01-31] MEDS ORDERED: Rocuronium Bromide 10 MG/ML (10ML VIAL) ONE (11:14)
[2022-01-31] MEDS ORDERED: Ondansetron PF 4 MG/2 ML Vial ONE (11:14)
== END 2022-01-31 14:00 | disposition home or self-care (01) ==
LOC: SDC 08:03
PROVIDERS: ATTEND Specialist
PROC: 06BY3ZC Excision of Hemorrhoidal Plexus, Percutaneous Approach (ICD-10-PCS; principal; 2022-01-31)
PROC: 06BY3ZC Excision of Hemorrhoidal Plexus, Percutaneous Approach (ICD-10-PCS; 2022-01-31)
DX: K64.8 Other hemorrhoids (principal); K64.4 Residual hemorrhoidal skin tags; I10 Essential (primary) hypertension; E78.5 Hyperlipidemia, unspecified; I25.10 Atherosclerotic heart disease of native coronary artery without angina pectoris; D53.9 Nutritional anemia, unspecified; K21.9 Gastro-esophageal reflux disease without esophagitis; M19.90 Unspecified osteoarthritis, unspecified site; Z79.01 Long term (current) use of anticoagulants; Z79.899 Other long term (current) drug therapy; Z88.1 Allergy status to other antibiotic agents; Z88.2 Allergy status to sulfonamides; Z88.8 Allergy status to other drugs, medicaments and biological substances; Z95.1 Presence of aortocoronary bypass graft; Z95.5 Presence of coronary angioplasty implant and graft; Z95.810 Presence of automatic (implantable) cardiac defibrillator
CPT/HCPCS: 88304; J0171; J0694; J1100; J1170; J1885; J2001; J2370; J2405; J2704; J3490; S0020

== ENCOUNTER 2022-02-15 12:09 | Observation (INO) | payer MEDICARE ==
[2022-02-15] MEDS ORDERED: Lidocaine 2% PF 5 ML VIAL ONE (12:12)
[2022-02-15] MEDS ORDERED: FENTANYL 50 MCG/ML VIAL 50 MCG/ML VIAL ONE ×2 (12:17→13:53)
[2022-02-15] MEDS ORDERED: CEFAZOLIN 2 GM VIAL ONE (12:17)
[2022-02-15 12:53] LABS: Hemoglobin 8.8 g/dL (14.0-18.0); Mean Corpuscular HGB CONC 32.8 g/dL (32.0-36.0); Mean Corpuscular Hemoglobin 30.7 pg (27.0-31.0); Mean Corpuscular Volume 93.5 fl (78.0-98.0); Platelet Count 229 thou/uL (130-400); RBC Distribution Width 16.2 % (11.5-14.5); Red Blood Cell (RBC) Count 2.86 mill/uL (4.70-6.10); White Blood Cell (WBC) Count 36.9 thou/uL (4.8-10.8)
[2022-02-15] MEDS ORDERED: Boostrix 0.5 ML (Tdap) VIAL (>/=7 yrs of age) ONE (12:57)
[2022-02-15 13:01] LABS: INR-International Normal Ratio 2.1; PTT 38.6 sec (22.9-36.1); Prothrombin Time 23.6 sec (12.0-14.7)
[2022-02-15 13:22] LABS: Anisocytosis SLIGHT = 6-15 cells (100X) (0-5/hpf); Band 10 % (5-11); Burr Cells SLIGHT = 2-5 cells (100X) (0-1/hpf); Eosinophils 2 % (0-10); Lymphocytes 3 % (21-51); MDiff Complete? YES; Monocytes 6 % (0-10); Neutrophil 79 % (42-75); Ovalocytes SLIGHT = 2-5 cells (100X) (0-1/hpf); Platelet Morphology Comment Appears Adequate; Polychromasia MODERATE = 3-4 cells (100X) (0-2/hpf); Tear Drops SLIGHT = 2-5 cells (100X) (0-1/hpf)
[2022-02-15 13:51] LABS: ALT (SGPT) 15 U/L (8-55); AST (SGOT) 21 U/L (5-34); Alkaline Phosphatase 53 U/L (40-110); BUN (Urea Nitrogen) 9 mg/dL (8.4-25.7); Bilirubin, Total 0.7 mg/dL (0.2-1.2); CK (CPK) 65 U/L (30-200); Calc. Creatinine Clearance 0 mL/min (70-130); Calcium 8.1 mg/dL (7.8-10.44); Chloride 101 mmol/L (98-107); Estimated GFR 84; Sodium 135 mmol/L (136-145)
[2022-02-15] MEDS ORDERED: ADMIXTURE FEE IV SCH ×2 (14:15→14:30)
[2022-02-15] MEDS ORDERED: HUMAN PROTHROMBIN COMPLX IV SCH ×2 (14:15→14:30)
[2022-02-15] MEDS ORDERED: Ondansetron PF 4 MG/2 ML Vial IVP PRN (14:19)
[2022-02-15] MEDS ORDERED: TETANUS, DIPHTHERIA TOX,ADULT (TDVAX) 0.5 ML VIAL IM ONE (14:19)
[2022-02-15] MEDS ORDERED: traMADol HCl 50 MG TAB PO PRN (14:21)
[2022-02-15 14:30] LABS: CKMB 1.5 ng/mL (0-6.6)
[2022-02-15 14:53] LABS: #Eosinphils 0.3 thou/uL (0.0-0.7); #Lymphocytes 1.2 thou/uL (1.20-3.40); #Monocytes 1.2 thou/uL (0.11-0.59); #Neutrophils 20.8 thou/uL (1.40-6.50); %Basophils 0.1 % (0.0-1.0); %Eosinophils 1.2 % (0.0-10.0); %Lymphocytes 5.2 % (21.0-51.0); %Monocytes 5.3 % (0.0-10.0); %Neutrophils 88.3 % (42.0-75.0); Hemoglobin 7.8 g/dL (14.0-18.0); Mean Corpuscular HGB CONC 31.6 g/dL (32.0-36.0); Mean Corpuscular Hemoglobin 29.3 pg (27.0-31.0); Mean Corpuscular Volume 92.4 fl (78.0-98.0); Platelet Count 270 thou/uL (130-400); RBC Distribution Width 16.7 % (11.5-14.5); Red Blood Cell (RBC) Count 2.67 mill/uL (4.70-6.10); White Blood Cell (WBC) Count 23.5 thou/uL (4.8-10.8)
[2022-02-15 14:57] LABS: PTT 35.8 sec (22.9-36.1); Prothrombin Time 23.2 sec (12.0-14.7)
[2022-02-15] MEDS ORDERED: Morphine 4 MG/ML VIAL SLOW IVP PRN (15:06)
[2022-02-15 16:22] LABS: Anion Gap 13 mmol/L (10-20); Carbon Dioxide 25 mmol/L (23-31); Globulin 1.8 g/dL (2.4-3.5); Glucose 117 mg/dL (83-110); Protein, Total 4.8 g/dL (5.8-8.1)
[2022-02-15 16:52] LABS: Bacteria/HPF None Seen HPF (None Seen); Bilirubin Negative (Negative); Blood, Urine 2+ (Negative); Clarity Clear (Clear); Glucose, Urine (Dipstick) Normal (Negative); Ketone, Urine Trace mg/dL (Negative); Leukocyte Negative Leu/uL (Negative); Nitrite Negative (Negative); Protein, Urine (Dipstick) Negative (Neg-Trace); Specific Gravity, Urine 1.021 (1.002-1.036); Squamous Epithelial 0-3 HPF (0-3); Urobilinogen Normal mg/dL (Less than 2); WBC/HPF 0-3 HPF (0-3); pH, Urine 5.5 (5.0-9.0)
[2022-02-15 16:53] LABS: RBC/HPF 0-3 HPF (0-3)
[2022-02-15] MEDS: traMADol HCl 50 MG TAB PO SCH (17:44)
[2022-02-15] MEDS: Ferrous Sulfate 325 MG TAB PO SCH (17:45)
[2022-02-15] MEDS: Acetaminophen 325 MG TAB PO SCH (17:45)
[2022-02-15 18:16] LABS: #Eosinphils 0.2 thou/uL (0.0-0.7); #Lymphocytes 1.8 thou/uL (1.20-3.40); #Monocytes 1.2 thou/uL (0.11-0.59); #Neutrophils 11.6 thou/uL (1.40-6.50); %Basophils 0.3 % (0.0-1.0); %Eosinophils 1.2 % (0.0-10.0); %Monocytes 8.3 % (0.0-10.0); %Neutrophils 78.2 % (42.0-75.0); Hemoglobin 7.4 g/dL (14.0-18.0); Mean Corpuscular HGB CONC 32.2 g/dL (32.0-36.0); Mean Corpuscular Hemoglobin 29.7 pg (27.0-31.0); Mean Corpuscular Volume 92.1 fl (78.0-98.0); Mean Platelet Volume 6.7 fL (7.4-10.4); Platelet Count 231 thou/uL (130-400); RBC Distribution Width 16.8 % (11.5-14.5); White Blood Cell (WBC) Count 14.9 thou/uL (4.8-10.8)
[2022-02-15] MEDS ORDERED: Calcium Chloride 13.6 MEQ in Sodium Chloride 0.9% 100 ML IVPB SCH (18:45)
[2022-02-15 18:53] LABS: CKMB 1.5 ng/mL (0-6.6)
[2022-02-15] MEDS: Senokot S 8.6-50 MG TAB PO SCH (20:41)
[2022-02-15] MEDS: Ascorbic Acid 500 mg Chewable Tablet PO SCH (20:41)
[2022-02-15] MEDS: Famotidine/PF 20 mg/2ml Vial SLOW IVP SCH (20:41)
[2022-02-15] MEDS ORDERED: HYDROCORTISONE TOP PRN (21:53)
[2022-02-16] MEDS: traMADol HCl 50 MG TAB PO SCH ×4 (00:06→12:19)
[2022-02-16] MEDS: Acetaminophen 325 MG TAB PO SCH ×3 (00:07→12:16)
[2022-02-16 05:10] LABS: #Eosinphils 0.4 thou/uL (0.0-0.7); #Lymphocytes 2.1 thou/uL (1.20-3.40); #Monocytes 1.4 thou/uL (0.11-0.59); #Neutrophils 7.5 thou/uL (1.40-6.50); %Basophils 0.2 % (0.0-1.0); %Eosinophils 3.8 % (0.0-10.0); %Lymphocytes 18.6 % (21.0-51.0); %Monocytes 12.2 % (0.0-10.0); %Neutrophils 65.2 % (42.0-75.0); Hemoglobin 8.4 g/dL (14.0-18.0); Mean Corpuscular HGB CONC 31.9 g/dL (32.0-36.0); Mean Corpuscular Hemoglobin 28.7 pg (27.0-31.0); Mean Platelet Volume 7.2 fL (7.4-10.4); Platelet Count 208 thou/uL (130-400); RBC Distribution Width 16.9 % (11.5-14.5); Red Blood Cell (RBC) Count 2.94 mill/uL (4.70-6.10); White Blood Cell (WBC) Count 11.5 thou/uL (4.8-10.8)
[2022-02-16 05:12] LABS: INR-International Normal Ratio 1.2; PTT 26.3 sec (22.9-36.1); Prothrombin Time 15.7 sec (12.0-14.7)
[2022-02-16 05:28] LABS: Anion Gap 10 mmol/L (10-20); BUN (Urea Nitrogen) 10 mg/dL (8.4-25.7); Calc. Creatinine Clearance 90 mL/min (70-130); Calcium 8.2 mg/dL (7.8-10.44); Carbon Dioxide 27 mmol/L (23-31); Chloride 100 mmol/L (98-107); Estimated GFR 89; Glucose 88 mg/dL (83-110); Potassium 3.9 mmol/L (3.5-5.1); Sodium 133 mmol/L (136-145)
[2022-02-16 06:03] LABS: CKMB 2.2 ng/mL (0-6.6)
[2022-02-16] MEDS: Ferrous Sulfate 325 MG TAB PO SCH ×2 (08:59→15:53)
[2022-02-16] MEDS: Ascorbic Acid 500 mg Chewable Tablet PO SCH (08:59)
[2022-02-16] MEDS: Famotidine/PF 20 mg/2ml Vial SLOW IVP SCH (09:00)
[2022-02-16] MEDS ORDERED: Carvedilol 6.25 MG TAB PO SCH (09:00)
[2022-02-16] MEDS ORDERED: Dutasteride 0.5 MG CAP PO SCH (09:00)
[2022-02-16] MEDS: Potassium Chloride 10 MEQ TAB PO SCH ×2 (09:00→15:53)
[2022-02-16] MEDS ORDERED: Tamsulosin HCl 0.4 MG CAP PO SCH (09:00)
[2022-02-16] MEDS ORDERED: Polyethylene Glycol 3350 17 GM Packet PO SCH (09:00)
[2022-02-16] MEDS: Senokot S 8.6-50 MG TAB PO SCH (09:09)
[2022-02-16 10:01] LABS: #Basophils 0.1 thou/uL (0.0-0.2); #Eosinphils 0.4 thou/uL (0.0-0.7); #Monocytes 1.1 thou/uL (0.11-0.59); #Neutrophils 8.1 thou/uL (1.40-6.50); %Basophils 0.5 % (0.0-1.0); %Eosinophils 3.7 % (0.0-10.0); %Lymphocytes 16.8 % (21.0-51.0); %Monocytes 9.5 % (0.0-10.0); %Neutrophils 69.6 % (42.0-75.0); Hemoglobin 9.5 g/dL (14.0-18.0); Mean Corpuscular HGB CONC 32.6 g/dL (32.0-36.0); Mean Corpuscular Hemoglobin 29.6 pg (27.0-31.0); Mean Corpuscular Volume 90.8 fl (78.0-98.0); Mean Platelet Volume 6.8 fL (7.4-10.4); Platelet Count 242 thou/uL (130-400); Red Blood Cell (RBC) Count 3.22 mill/uL (4.70-6.10); White Blood Cell (WBC) Count 11.7 thou/uL (4.8-10.8)
[2022-02-16 10:58] LABS: Troponin I 0.035 ng/mL (< 0.028)
[2022-02-16 17:01] VITALS: BP 119/70; TEMP 98.3
[2022-02-18] MEDS ORDERED: FLU VACC QS2022-23(65YR UP)/PF 240 MCG/0.7 ML SYRINGE IM ONE (17:45)
== END 2022-02-16 16:30 | disposition home health service (06) ==
LOC: ERS 12:09 → 2NO 16:48
PROVIDERS: ADMIT Surgery; ATTEND Surgery
DX: S01.01XA Laceration without foreign body of scalp, initial encounter (principal); G89.11 Acute pain due to trauma; I25.10 Atherosclerotic heart disease of native coronary artery without angina pectoris; I11.0 Hypertensive heart disease with heart failure; I50.9 Heart failure, unspecified; E78.5 Hyperlipidemia, unspecified; I48.91 Unspecified atrial fibrillation; M47.12 Other spondylosis with myelopathy, cervical region; M48.02 Spinal stenosis, cervical region; Z79.01 Long term (current) use of anticoagulants; Z79.899 Other long term (current) drug therapy; Z95.0 Presence of cardiac pacemaker; Z95.1 Presence of aortocoronary bypass graft; Z95.5 Presence of coronary angioplasty implant and graft; W18.30XA Fall on same level, unspecified, initial encounter; Y92.008 Other place in unspecified non-institutional (private) residence as the place of occurrence of the external cause
CPT/HCPCS: 12002; 36430; 70450; 71045; 72125; 73502; 80048; 82550; 82553 ×2; 83605; 83735; 83880 ×2; 84484 ×4; 85025; 85610 ×3; 85730 ×3; 86850; 86900; 86901; 86920; 90471; 90715; 93005; 94760; 96365; 96374; 96375 ×2; 96376 ×2; 97530; 99285; G0378 ×3; J3010; J7168; P9016 ×2; U0003; U0005; 36415; 80053; 81003; 81015; 84443; G0390; J2001; J3490; S0028

== ENCOUNTER 2022-02-17 15:52 | Emergency (ER) | payer MEDICARE ==
[2022-02-17 16:57] LABS: #Eosinphils 0.1 thou/uL (0.0-0.7); #Monocytes 0.9 thou/uL (0.11-0.59); #Neutrophils 9.9 thou/uL (1.40-6.50); %Basophils 0.1 % (0.0-1.0); %Eosinophils 1.2 % (0.0-10.0); %Lymphocytes 8.3 % (21.0-51.0); %Monocytes 7.2 % (0.0-10.0); %Neutrophils 83.1 % (42.0-75.0); Hemoglobin 8.4 g/dL (14.0-18.0); Mean Corpuscular Hemoglobin 29.2 pg (27.0-31.0); Mean Corpuscular Volume 91.3 fl (78.0-98.0); Mean Platelet Volume 6.8 fL (7.4-10.4); Platelet Count 238 thou/uL (130-400); RBC Distribution Width 16.4 % (11.5-14.5); Red Blood Cell (RBC) Count 2.88 mill/uL (4.70-6.10); White Blood Cell (WBC) Count 11.9 thou/uL (4.8-10.8)
[2022-02-17 17:12] LABS: ALT (SGPT) 12 U/L (8-55); AST (SGOT) 17 U/L (5-34); Albumin 3.4 g/dL (3.4-4.8); Alkaline Phosphatase 56 U/L (40-110); Anion Gap 11 mmol/L (10-20); BUN (Urea Nitrogen) 7 mg/dL (8.4-25.7); Bilirubin, Total 0.5 mg/dL (0.2-1.2); Calc. Creatinine Clearance 0 mL/min (70-130); Calcium 8.4 mg/dL (7.8-10.44); Carbon Dioxide 27 mmol/L (23-31); Chloride 101 mmol/L (98-107); Estimated GFR 89; Globulin 1.9 g/dL (2.4-3.5); Glucose 133 mg/dL (83-110); Protein, Total 5.3 g/dL (5.8-8.1); Sodium 135 mmol/L (136-145)
[2022-02-17] MEDS ORDERED: Morphine 4 MG/ML VIAL ONE (17:22)
[2022-02-17] MEDS ORDERED: Nitroglycerin 2% Ointment 1 INCH/1 GM Packet ONE (17:22)
[2022-02-17] MEDS ORDERED: Ondansetron PF 4 MG/2 ML Vial ONE (17:22)
[2022-02-17 17:38] LABS: CK (CPK) 47 U/L (30-200); Lipase 22 U/L (8-78)
[2022-02-17 17:56] LABS: Bilirubin Negative (Negative); Blood, Urine Negative (Negative); Clarity Clear (Clear); Glucose, Urine (Dipstick) Normal (Negative); Ketone, Urine Negative (Negative); Leukocyte Negative Leu/uL (Negative); Nitrite Negative (Negative); Protein, Urine (Dipstick) Negative (Neg-Trace); Specific Gravity, Urine 1.006 (1.002-1.036); Urobilinogen Normal mg/dL (Less than 2)
== END 2022-02-17 18:10 | disposition home or self-care (01) ==
LOC: ERS 15:52
DX: R51.9 Headache, unspecified (principal); S01.01XD Laceration without foreign body of scalp, subsequent encounter; I25.10 Atherosclerotic heart disease of native coronary artery without angina pectoris; E78.5 Hyperlipidemia, unspecified; I10 Essential (primary) hypertension; W19.XXXD Unspecified fall, subsequent encounter
CPT/HCPCS: 70450; 71045; 80053; 81003; 82550; 82553; 83690; 84484; 85025; 93005; 96374; 96375; J2270; J2405

== ENCOUNTER → 2022-03-07 | Day surgery (SDC) | payer MEDICARE ==
[2022-03-06 09:19] VITALS: BMI 29.8
[~2022-03-07] MED LIST: FLU VACC QS2022-23(65YR UP)/PF 240 MCG/0.7 ML SYRINGE IM ONE; Iopamidol-M 200 41% 10 ML VIAL FS ONE
[2022-03-07 08:09] VITALS: BP 152/79; TEMP 97.9
== END | disposition home or self-care (01) ==
LOC: RAD 07:25
PROVIDERS: ATTEND Surgery
PROC: B01B1ZZ Fluoroscopy of Spinal Cord using Low Osmolar Contrast (ICD-10-PCS; principal; 2022-03-07)
DX: M47.26 Other spondylosis with radiculopathy, lumbar region (principal); M51.16 Intervertebral disc disorders with radiculopathy, lumbar region; M48.061 Spinal stenosis, lumbar region without neurogenic claudication; M47.817 Spondylosis without myelopathy or radiculopathy, lumbosacral region; M51.37 Other intervertebral disc degeneration, lumbosacral region; M48.07 Spinal stenosis, lumbosacral region; M43.16 Spondylolisthesis, lumbar region; I70.0 Atherosclerosis of aorta; Z79.01 Long term (current) use of anticoagulants; Z79.52 Long term (current) use of systemic steroids; Z79.899 Other long term (current) drug therapy; Z88.1 Allergy status to other antibiotic agents; Z88.2 Allergy status to sulfonamides; Z88.8 Allergy status to other drugs, medicaments and biological substances
CPT/HCPCS: 62304; 72132